=== PATIENT | male | born 1945 | race Caucasian/White ===

== ENCOUNTER 2016-08-18 16:50 | Observation (INO) ==
--- NOTE | 2016-08-18 16:56 | Emergency Department Note ---
Disposition Clinical Impression: Chest pain Qualifiers: Chest pain type: unspecified Qualified Code(s): R07.9 - Chest pain, unspecified Disposition: Admitted As Inpatient Condition: Fair Referrals: NO,PCP [Non-Partnered Physician] - Forms: ED Satisfaction Letter Time of Disposition: 19:55 General Adult HPI - General Chief complaint: ED Chest Pain Stated complaint: 'chest pain" Time Seen by Provider: 08/18/16 16:54 Source: patient, EMS Mode of arrival: EMS Limitations: altered mental status Nursing Notes Reviewed: Yes Vital Signs Reviewed: Yes - History of Present Illness HPI Narrative: 70-year-old apparently has had a fair amount to drink today who comes in complaining of chest pain that he describes as left-sided. He also has slurred speech in the face of a large amount of alcohol intake but family states he normally drinks a lot of alcohol the speech is of the slurred. Onset of slurred speech is unknown conversation with the patient and EMS who talked to family members. 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 Constitutional: Denies: fever, chills, weakness, weight change Eyes: Denies: eye pain, eye discharge, vision change ENT ED: Denies: ear pain, throat pain, dental pain, hearing loss, epistaxis, congestion, dysphagia Cardiovascular: Reports: chest pain. Denies: palpitations, dyspnea on exertion , edema, syncope Respiratory: Denies: cough, dyspnea, wheezes, hemoptysis, stridor Gastrointestinal: Denies: abdominal pain, nausea, vomiting, diarrhea, constipation, hematemesis, melena, hematochezia Genitourinary: Denies: urgency, dysuria, frequency, hematuria Musculoskeletal: Denies: back pain, neck pain, arthralgia, myalgia Integumentary: Denies: rash, abrasion, lesions Neurological: Denies: headache, weakness, numbness, paresthesias, confusion, abnormal gait, vertigo Psychiatric: Denies: anxiety, depression, suicidal thoughts, homicidal thoughts , auditory hallucinations, visual hallucinations Endocrine: Denies: fatigue Hematological/Lymphatic: Denies: easy bleeding, easy bruising Allergic/Immunologic: Denies: facial swelling, urticaria Physical Exam - General Limitations: no limitations General appearance: alert, in no apparent distress - Head Head exam: atraumatic, normocephalic, normal inspection - Eye Eye exam: Present: normal appearance, PERRL, EOMI - ENT ENT exam: normal exam, normal oropharynx, mucous membranes moist - Neck Neck exam: Present: normal inspection, full ROM, trachea midline - Chest Chest inspection: Present: normal inspection, symmetric chest wall rise - Respiratory Respiratory exam: Present: normal lung sounds bilaterally - Cardiovascular Cardiovascular exam: Present: regular rate, normal rhythm, normal heart sounds - Abdominal Exam Abdominal exam: Present: soft, Non-Tender. Absent: tenderness, distention, guarding, rebound, rigidity - Extremities Exam Extremities exam: Present: normal inspection, full ROM. Absent: tenderness, pedal edema - Expanded Lower Extremity Exam Neurovascular/Tendon exam: Absent: motor deficit, sensory deficit, tendon deficit Gait: observed and normal - Back Exam Back exam: Present: normal inspection, full ROM. Absent: tenderness - Neurological Exam Neurological exam: Present: alert, oriented X3 - Psychiatric Psychiatric exam: Present: normal affect, normal mood - Skin Skin exam: Present: warm, dry, intact, normal color Course - Reevaluation(s) Reevaluation #1: 70-year-old who comes in complaining of chest pain. Patient had a fair amount of alcohol today his alcohol level here is 178.. Patient is lucid and states it kind of feels like what he had prior to her previous NE. She will be admitted for further evaluation. Time: 19:53 - Consultations Consultation #1: Discussed with . Time: 19:54 Vital Signs Temperature 98.5 F 08/18/16 16:54 Pulse Rate 93 08/18/16 16:54 Respiratory Rate 18 08/18/16 16:54 Blood Pressure 115/84 08/18/16 16:54 O2 Sat by Pulse Oximetry 94 08/18/16 16:54 Temperature 98.5 F 08/18/16 16:54 Pulse Rate 83 08/18/16 18:15 Respiratory Rate 24 08/18/16 18:15 Blood Pressure 125/81 08/18/16 18:15 O2 Sat by Pulse Oximetry 92 08/18/16 18:15 Oxygen Delivery Oxygen Delivery Room Air Medical Decision Making - Lab Data Lab results reviewed: Yes I reviewed the patient's lab results. Result diagrams: 08/18/16 17:50 08/18/16 17:50 Lab Results 08/18/16 08/18/16 08/18/16 Range/Units 17:50 17:50 17:50 WBC 5.8 (4.3-11.1) K/mcL RBC 4.01 L (4.19-5.50) M/mcL Hgb 13.7 (12.9-16.9) g/dL Hct 40.2 (37.5-50.1) % MCV 100.2 H (83.0-100.0) fL MCH 34.2 H (28.0-33.3) pg MCHC 34.1 (31.6-35.5) g/dL RDW 13.3 (11.5-14.5) % Plt Count 155 (140-400) K/mcL MPV 10.2 (9.4-12.4) fL Immature Gran % 0.7 (0-4) % Seg Neutrophils % 45.3 % Lymphocytes % 39.7 % Monocytes % 8.3 % Eosinophils % 5.5 % Basophils % 0.5 % Neutrophils # 2.6 (1.6-8.9) K/mcL Lymphocytes # 2.3 (0.6-4.6) K/mcL Monocytes # 0.5 (0.0-1.3) K/mcL Eosinophils # 0.3 (0.0-0.6) K/mcL Basophils # 0.0 (0.0-0.2) K/mcL Immature Plt Fraction 5.0 (1.1-6.1) % PT 11.5 (9.4-12.1) Seconds INR 1.1 APTT 26.3 (26.0-36.0) Seconds Sodium 142 (136-145) mEq/L Potassium 3.9 (3.5-4.5) mEq/L Chloride 106 (98-109) mEq/L Carbon Dioxide 24 (19-29) mEq/L BUN 11 (8-26) mg/dL Creatinine 1.12 (0.72-1.25) mg/dL Est GFR ( Amer) > 60 (> 60) Est GFR (Non-Af Amer) > 60 (> 60) BUN/Creatinine Ratio 10 (6-26) Glucose 98 (70-99) mg/dL Calculated Osmolality 293 (280-300) Calcium 9.1 (8.6-10.8) mg/dL Total Bilirubin 0.4 (0.2-1.2) mg/dL Direct Bilirubin 0.1 (0.0-0.5) mg/dL Indirect Bilirubin 0.3 (0.0-1.2) mg/dL AST 17 (5-34) Units/L ALT 14 (0-55) Units/L Alkaline Phosphatase 57 (38-126) Units/L Troponin I (0-0.03) ng/mL Serum Total Protein 6.8 (6.0-8.3) g/dL Albumin 3.7 (3.5-5.0) g/dL Globulin 3.1 (2.4-3.5) g/dL Albumin/Globulin Ratio 1.2 (1.1-2.2) Amylase 53 (25-125) Units/L Lipase 38 (8-78) Units/L Ethyl Alcohol 178 H (0-10) mg/dL 08/18/16 Range/Units 17:50 WBC (4.3-11.1) K/mcL RBC (4.19-5.50) M/mcL Hgb (12.9-16.9) g/dL Hct (37.5-50.1) % MCV (83.0-100.0) fL MCH (28.0-33.3) pg MCHC (31.6-35.5) g/dL RDW (11.5-14.5) % Plt Count (140-400) K/mcL MPV (9.4-12.4) fL Immature Gran % (0-4) % Seg Neutrophils % % Lymphocytes % % Monocytes % % Eosinophils % % Basophils % % Neutrophils # (1.6-8.9) K/mcL Lymphocytes # (0.6-4.6) K/mcL Monocytes # (0.0-1.3) K/mcL Eosinophils # (0.0-0.6) K/mcL Basophils # (0.0-0.2) K/mcL Immature Plt Fraction (1.1-6.1) % PT (9.4-12.1) Seconds INR APTT (26.0-36.0) Seconds Sodium (136-145) mEq/L Potassium (3.5-4.5) mEq/L Chloride (98-109) mEq/L Carbon Dioxide (19-29) mEq/L BUN (8-26) mg/dL Creatinine (0.72-1.25) mg/dL Est GFR ( Amer) (> 60) Est GFR (Non-Af Amer) (> 60) BUN/Creatinine Ratio (6-26) Glucose (70-99) mg/dL Calculated Osmolality (280-300) Calcium (8.6-10.8) mg/dL Total Bilirubin (0.2-1.2) mg/dL Direct Bilirubin (0.0-0.5) mg/dL Indirect Bilirubin (0.0-1.2) mg/dL AST (5-34) Units/L ALT (0-55) Units/L Alkaline Phosphatase (38-126) Units/L Troponin I 0.02 (0-0.03) ng/mL Serum Total Protein (6.0-8.3) g/dL Albumin (3.5-5.0) g/dL Globulin (2.4-3.5) g/dL Albumin/Globulin Ratio (1.1-2.2) Amylase (25-125) Units/L Lipase (8-78) Units/L Ethyl Alcohol (0-10) mg/dL - Radiology Data Radiology results reviewed: Yes I reviewed the patient's radiology results. Chest X-Ray 08/18/16 16:52 IMPRESSION: No evidence of acute cardiopulmonary disease. Sequela of granulomatous disease. D/ / Bam Christensen MD / Bam Christensen MD Interpreting Provider: Bam Christensen MD Head CT 08/18/16 16:53 IMPRESSION: No acute intracranial abnormality. If acute cerebral infarct is a clinical concern, an MRI is a more sensitive study. D/ / Karen Omalley Cha, MD / Karen Omalley Cha, MD Interpreting Provider: Karen Omalley Cha, MD Hip X-Ray 08/18/16 16:57 IMPRESSION: No evidence of dislocation or gross fracture. D/ / Bam Christensen MD / Bam Christensen MD Interpreting Provider: Bam Christensen MD - EKG Data EKG #1 EKG attestation: Yes I reviewed and interpreted this EKG. EKG shows normal: sinus rhythm Rate: tachycardia Rhythm: NSR Interpretation: no acute changes
[2016-08-18 17:59] LABS: Basophils % 0.5 %; Eosinophils # 0.3 K/mcL (0.0-0.6); Eosinophils % 5.5 %; Hematocrit 40.2 % (37.5-50.1); Hemoglobin 13.7 g/dL (12.9-16.9); Immature Granulocytes % 0.7 % (0-4); Lymphocytes # 2.3 K/mcL (0.6-4.6); Lymphocytes % 39.7 %; Mean Corpuscular HGB Conc 34.1 g/dL (31.6-35.5); Mean Corpuscular Hemoglobin 34.2 pg (28.0-33.3); Mean Corpuscular Volume 100.2 fL (83.0-100.0); Mean Platelet Volume 10.2 fL (9.4-12.4); Monocytes # 0.5 K/mcL (0.0-1.3); Monocytes % 8.3 %; Neutrophils # 2.6 K/mcL (1.6-8.9); Platelet Count 155 K/mcL (140-400); Red Blood Count 4.01 M/mcL (4.19-5.50); Red Cell Distribution Width 13.3 % (11.5-14.5); Segmented Neutrophils % 45.3 %
[2016-08-18 18:06] LABS: INR 1.1; Prothrombin Time 11.5 Seconds (9.4-12.1)
[2016-08-18 18:09] LABS: Activated Partial Thrombo Time 26.3 Seconds (26.0-36.0)
[2016-08-18 19:26] LABS: Alanine Aminotransferase 14 Units/L (0-55); Albumin 3.7 g/dL (3.5-5.0); Albumin/Globulin Ratio 1.2 (1.1-2.2); Alkaline Phosphatase 57 Units/L (38-126); Amylase 53 Units/L (25-125); Aspartate Amino Transferase 17 Units/L (5-34); BUN/Creatinine Ratio 10 (6-26); Bilirubin,Direct 0.1 mg/dL (0.0-0.5); Bilirubin,Indirect 0.3 mg/dL (0.0-1.2); Bilirubin,Total 0.4 mg/dL (0.2-1.2); Blood Urea Nitrogen 11 mg/dL (8-26); Calcium 9.1 mg/dL (8.6-10.8); Carbon Dioxide 24 mEq/L (19-29); Chloride 106 mEq/L (98-109); Globulin 3.1 g/dL (2.4-3.5); Glucose 98 mg/dL (70-99); Lipase 38 Units/L (8-78); Osmolality,Calculated 293 (280-300); Potassium 3.9 mEq/L (3.5-4.5); Sodium 142 mEq/L (136-145); Total Protein 6.8 g/dL (6.0-8.3); eGFR For African Americans > 60 (> 60); eGFR For Non-African Americans > 60 (> 60)
[2016-08-18 19:28] LABS: Ethanol 178 mg/dL (0-10)
[2016-08-18] MEDS ORDERED: *HR* HYDROcodone/Acet 10/325 mg TABLET PO ONE (19:44)
[2016-08-18] MEDS ORDERED: 0.9 % Sodium Chloride 1,000 ML IVC ONE (19:44)
[2016-08-18] MEDS ORDERED: Naloxone 0.4 MG/ML INJ IVP PRN (22:17)
[2016-08-18] MEDS ORDERED: Acetaminophen 325 MG TABLET PO PRN (22:17)
[2016-08-18] MEDS ORDERED: *HR* HYDROcodone/Acet 10/325 mg TABLET PO PRN (22:20)
[2016-08-18] MEDS ORDERED: *HR* LORazepam 2 MG/ML VIAL IVP PRN ×3 (22:25)
[2016-08-18] MEDS ORDERED: *HR* Rivaroxaban 15 MG TABLET PO SCH (22:36)
--- NOTE | 2016-08-19 00:50 | Internal Med History&Physical ---
Date of Encounter: 08/18/16 Time of Encounter: 21:00 Assessment and Plan (1) Chest pain Current visit: Yes Status: Acute Etiology is undetermined. EKG and chest x-ray unremarkable. Patient has a history of CAD S/P stent, to rule out ACS - We will keep patient on continuous cardiac monitoring - Patient is pain-free now. - Check 3 sets of troponin. - Nuclear stress test in a.m., if troponin negative and patient is pain-free Qualifiers: Chest pain type: precordial pain Qualified Code(s): R07.2 - Precordial pain (2) DVT prophylaxis Current visit: Yes Status: Acute Patient is on xarelto. (3) Alcoholism Current visit: Yes Status: Acute Will place patient on CIWA protocol to prevent withdrawal. Add vitamin B1 and folate acid. Repeat alcohol level in a.m. (4) Chronic anticoagulation Current visit: Yes Status: Acute Patient is on xarelto at home, he said his cardiology told him his heart rate is sometimes fast sometimes slow. PAF?. Patient has sinus rhythm now. Will continue home medication (5) CAD (coronary artery disease) Current visit: Yes Status: Acute Patient is on xarelto, RENNY inhibitor, and statin. Nitroglycerin sublingual when necessary added. Qualifiers: Coronary Disease-Associated Artery/Lesion type: [place] artery [place] vs. transplanted heart: [place] heart Associated angina: with unstable angina Qualified Code(s): I25.110 - Atherosclerotic heart disease of [place] coronary artery with unstable angina pectoris (6) Hypertension Current visit: Yes Status: Acute Continue home medications Qualifiers: Hypertension type: essential hypertension Qualified Code(s): I10 - Essential (primary) hypertension (7) Tobacco abuse Current visit: Yes Status: Acute Patient smokes 1 pack a day. Smoking cessation education done. Place patient on nicotine patch. Internal Medicine - H&P: HPI Chief complaint: Chest pain Admitted From: Home Plans for Post Hospital Care: Home History of present illness: Mr. Gonzalez is a 70 year old male with history of CAD S/P stent about 4 years ago present to ER for chest pain. Patient said that he has chest pain on and off for about one year. Today he has chest pain again, located on left chest, sharp, radiated to right sided back, with shortness of breath, with nausea but no vomiting. Patient also has diaphoresis. The pain lasted 1-2 minutes and disappeared by itself. Patient also has a history of alcoholism, he drinks beer about 3 days a week and every time four beers a day. In ER his alcohol level is high. Patient also on xarelto 15mg po daily at home, he said his a cardiology give him because his heart rate sometimes fast sometimes slow. I discussed the CODE STATUS with patient. He is a full code. Past Med Surg Social Fam HX - Past Medical History Medical history: cirrhosis, COPD, CVA, hypertension, renal disease Psychiatric history: no psych history - Past Surgical History Surgical History: angioplasty/stent - Social History Smoking Status: Current every day smoker Packs per day: 1 Smokeless Tobacco Status: Yes Alcohol use: heavy, recent Drug use: marijuana Internal Medicine - H&P: Meds Gabapentin [Neurontin] 600 mg PO TID 08/18/16 [History] HYDROcodone/Acet 10/325 mg [[place] 10-325 mg] 1 tab PO Q6H PRN 08/18/16 [History] Lisinopril [Zestril] 40 mg PO DAILY 08/18/16 [History] Simvastatin [Zocor] 10 mg PO 08/18/16 [History] Xarelto 08/18/16 [History] Allergies No Known Allergies Allergy (Verified 08/18/16 16:53) All Systems PM: A 10-system review of systems was performed and is negative for pertinent findings except as documented above in the HPI. - Constitutional Vitals: Temp Pulse Resp BP Pulse Ox 97.8 F 88 20 150/75 95 08/18/16 23:19 08/18/16 23:19 08/18/16 23:19 08/18/16 23:19 08/18/16 23:19 General appearance: Present: A&O X 3, no acute distress, answers questions appropriately - Head Head exam: Present: atraumatic, normocephalic - Eye Eye exam: Present: PERRL, conjuntiva pink, sclera anicteric Pupils: Present: PERRL - Neck Neck exam general surgery: Present: supple, trachea midline. Absent: lymphadenopathy - Respiratory Respiratory exam: Present: CTAB. Absent: accessory muscle use, rales, rhonchi, wheezes - Cardiovascular Cardiovascular exam: Present: RRR, +S1, +S2. Absent: diastolic murmur, gallop, rubs, systolic murmur - GI/Abdominal GI/Abdominal exam: Present: normal bowel sounds, soft, no peritoneal signs. Absent: distended, tenderness - Extremities Exam Extremities exam: Present: warm, radial pulses palpable and symetrical. Absent : calf tenderness, cyanotic, pedal edema - Neurological Exam Neurological exam: Present: CN II-XII intact, oriented X3, no focal deficits. Absent: pronater drift, facial droop, speech deficit - Skin Skin exam: Present: dry, intact Internal Med - H&P Results - Labs CBC & Chem 7: 08/18/16 17:50 08/18/16 17:50 Labs: Cardiac Enzymes 08/18/16 Range/Units 22:45 Troponin I 0.00 (0-0.03) ng/mL - EKG Data -: EKG Interpreted by Myself EKG shows normal: sinus rhythm Rate: normal
[2016-08-19] MEDS ORDERED: Nitroglycerin 0.4 MG TAB.SUBL SL PRN (00:54)
[2016-08-19 04:51] LABS: Basophils # 0.1 K/mcL (0.0-0.2); Basophils % 0.7 %; Eosinophils # 0.4 K/mcL (0.0-0.6); Eosinophils % 6.1 %; Hematocrit 39.6 % (37.5-50.1); Hemoglobin 13.1 g/dL (12.9-16.9); Immature Granulocytes % 0.6 % (0-4); Lymphocytes # 2.2 K/mcL (0.6-4.6); Lymphocytes % 32.8 %; Mean Corpuscular HGB Conc 33.1 g/dL (31.6-35.5); Mean Corpuscular Hemoglobin 33.6 pg (28.0-33.3); Mean Corpuscular Volume 101.5 fL (83.0-100.0); Mean Platelet Volume 10.7 fL (9.4-12.4); Monocytes # 0.7 K/mcL (0.0-1.3); Monocytes % 9.6 %; Neutrophils # 3.4 K/mcL (1.6-8.9); Platelet Count 133 K/mcL (140-400); Red Cell Distribution Width 13.5 % (11.5-14.5); Segmented Neutrophils % 50.2 %
[2016-08-19 05:04] LABS: BUN/Creatinine Ratio 12 (6-26); Blood Urea Nitrogen 13 mg/dL (8-26); Calcium 8.5 mg/dL (8.6-10.8); Carbon Dioxide 27 mEq/L (19-29); Chloride 107 mEq/L (98-109); Glucose 95 mg/dL (70-99); Osmolality,Calculated 292 (280-300); Potassium 3.9 mEq/L (3.5-4.5); Sodium 141 mEq/L (136-145); eGFR For African Americans > 60 (> 60); eGFR For Non-African Americans > 60 (> 60)
[2016-08-19] MEDS ORDERED: Regadenoson 0.4 MG/5 ML SYRINGE IVP ONE (07:30)
[2016-08-19] MEDS ORDERED: Thiamine (B-1) 100 MG TABLET PO SCH (09:00)
[2016-08-19] MEDS ORDERED: Gabapentin 300 MG CAPSULE PO SCH (09:00)
[2016-08-19] MEDS ORDERED: Lisinopril 20 MG TABLET PO SCH (09:00)
[2016-08-19] MEDS ORDERED: Folic Acid 1 MG TABLET PO SCH (09:00)
[2016-08-19] MEDS ORDERED: Nicotine 21 MG PATCH.TD24 TD SCH (09:00)
[2016-08-19 10:38] VITALS: BP 147/76
--- NOTE | 2016-08-19 10:42 | Nuclear Medicine Stress Report ---
Regadenoson Nuclear Stress Name: Chandrakant Gonzalez Date of Study: 08/19/2016 Date: 1945 Ht: 76.0 in Medical Record#: [id number] Age: 70 Wt: 207.0 lb Gender: Male Order #: [id number] Location: [facility] Room: [facility] Supervising Provider: Matthew Dumont CNP Reading Physician: Dilshad Stoll DO, FAC, [facility] Ordering Physician: Yesenia Coburn CNP Primary Care Physician: Deejay Haney DO Stress Technologist: Pia Rob, ENGLISH AS A SECOND LANGUAGE TEACHER,CPFT Ladle Watcher: Wale Szymanski Indications: Chest Pain, Coronary Artery Disease Impression: Pharmacologic stress ECG is negative for ischemia at level of heart rate achieved. Gated EF = 73%. Perfusion imaging was negative for ischemia or infarct. History: Hypertension Hypercholesteremia History of Smoking Prior PCI History of Coronary Artery Bypass Surgery Stress Test Summary: Stress Test Type: Pharmacologic Regadenoson 0.4mg/5ml given IV Baseline Information: Initial Heart Rate: 80 Blood Pressure: 162/94 Stress Information: Test Terminated Due to (primary): As per protocol Maximum Blood Pressure: 148/82 Maximum Heart Rate: 108 Percent Maximum Heart Rate Achieved: 72 Double Product: 92186 METS Reached: 1 Symptoms: Shortness of breath Nuclear Summary: SPECT myocardial perfusion imaging using Tc99m Sestamibi given intravenously was performed at rest and following cardiac stress testing. The resting images were obtained following initial dose of 11.4 mCi. Following stress an additional dose of 35.2 mCi was given at peak exercise or 30 seconds post regadenoson infusion. Medication Given: Time Medication Dose Units Route Findings: Stress Note * Resting ECG demonstrated normal sinus rhythm. * No baseline arrhythmias were noted. * Exercise ECG is negative for ischemia. * Pharmacologic stress ECG is negative for ischemia at level of heart rate achieved. * No arrhythmias were noted during stress. * Patient had no chest pain during stress. Hemodynamic responses * Normal hemodynamic responses to pharmacologic stress. Study Quality * Study quality is average. Gated EF % * Gated EF = 73%. Left Ventricle * The left ventricle is not dilated. * LVEDV = 95 mL. NORMALS * Normal wall motion. Inferior Perfusion Rest * The mid to apical inferior segment shows a mid to moderate reduction in perfusion. Compared to stress, perfusion appears worse on rest imaging, which is c/w artifact. Inferior Perfusion Stress * The mid to apical inferior segment shows a mild reduction in perfusion. TID * No evidence of transient ischemic dilatation. TID ratio * TID ratio = 1.12. Lung Uptake * There is no evidence of increase lung uptake. Updated by Dilshad Stoll DO, FACJeff, SHAWNA, DAO on 08/19/2016 10:38:07 AM electronically signed on 08/19/2016 10:38:28 AM with status of Final
--- NOTE | 2016-08-19 12:52 | Discharge Summary ---
Date of Encounter: 08/19/16 Time of Encounter: 11:45 - Discharge Diagnosis (1) Chest pain Priority: Primary Status: Resolved Comments: Patient denied chest pain or shortness of breath on day of discharge. Chest x- ray negative. Troponins negative. Stress test negative. ACS ruled out. (2) DVT prophylaxis Priority: Primary Status: Acute Comments: on Xarelto (3) Alcoholism Priority: Secondary Status: Chronic Comments: Signs of withdrawal during this admission. Patient declined counseling or resources. (4) Chronic anticoagulation Priority: Secondary Status: Chronic (5) CAD (coronary artery disease) Priority: Secondary Status: Chronic Qualifiers: Coronary Disease-Associated Artery/Lesion type: [place] artery [place] vs. transplanted heart: [place] heart Associated angina: with unstable angina Qualified Code(s): I25.110 - Atherosclerotic heart disease of [place] coronary artery with unstable angina pectoris (6) Hypertension Priority: Secondary Status: Chronic Comments: Borderline hypertensive at times however no adjustments were indicated to the patient's medications. Continue lisinopril 40 mg daily. Recommend check blood pressure daily and follow up outpatient with primary care provider. Qualifiers: Hypertension type: essential hypertension Qualified Code(s): I10 - Essential (primary) hypertension (7) Tobacco abuse Priority: Secondary Status: Chronic Comments: Declined counseling - Discharge Medications Home Medications: Gabapentin [Neurontin] 600 mg PO TID 08/18/16 [History] HYDROcodone/Acet 10/325 mg [[place] 10-325 mg] 1 tab PO Q6H PRN 08/18/16 [History] Lisinopril [Zestril] 40 mg PO DAILY 08/18/16 [History] Simvastatin [Zocor] 10 mg PO 08/18/16 [History] Xarelto 08/18/16 [History] Allergies/Adverse Reactions: Allergies No Known Allergies Allergy (Verified 08/18/16 16:53) Procedures/tests Complete & Pending: Procedures Performed prior 72 hours Category Date Time Status NM naveed perf SPECT multi [NM] Routine Exams 08/18/16 22:22 Taken SP pharm nuclear stress Routine Y 08/18/16 22:21 Completed Date of admission: 08/18/16 20:05 Primary care physician: Batsheva Nova Consults: 08/18/16 22:25 Consult to Sheet Metal Work Furnace Installer [CONS] Routine Reason for SW Consult: Alcoholism Discharging clinician: Yesenia Coburn Anticipated date of discharge: 08/19/16 - Patient Status Disposition: Home, Self-Care Condition: Fair Functional capacity at discharge: independent ambulation Overall status at discharge: patient is back to baseline - Discharge Instructions Follow Up With: Deejay Haney DO [Primary Care Provider] - Additional Instructions: Follow-up with primary care provider within one to 2 weeks - Diet and Activity Activity: increase activity as tolerated Diet: low fat, low cholesterol, low salt diet Hospital course: Mr. Gonzalez is a 70 year old male with past medical history of CAD status post stent, cirrhosis, prior CVA, hypertension, heavy alcohol use, marijuana abuse, tobacco abuse. Patient presented to the emergency room chief complaint chest pain on and off for the last year. He states on the day of presentation, his chest pain was located on the left side of his chest, was sharp, and radiated to the right side of his back and was associated with shortness of breath and nausea but no vomiting. Patient also endorsed diaphoresis. Patient stating the pain lasted approximately 1-2 minutes and disappeared by itself. Elevated alcohol levels noted in the emergency department. Workup otherwise unremarkable. Chest x-ray negative for acute processes. Head CT negative for acute processes. Hip x-ray negative. Patient was admitted to the hospitalist service for further evaluation and management. Patient denied chest pain or shortness of breath throughout this admission. Troponins negative 3. Nuclear stress test negative for ischemia or infarct and revealed an ejection fraction of 73%. ACS ruled out. He was discharged home in stable condition with close outpatient follow-up recommended. ITS Impressions Chest X-Ray 08/18/16 16:52 IMPRESSION: No evidence of acute cardiopulmonary disease. Sequela of granulomatous disease. D/ / Bam Christensen MD / Bam Christensen MD Interpreting Provider: Bam Christensen MD Head CT 08/18/16 16:53 IMPRESSION: No acute intracranial abnormality. If acute cerebral infarct is a clinical concern, an MRI is a more sensitive study. D/ / Karen Omalley Cha, MD / Karen Omalley Cha, MD Interpreting Provider: Karen Omalley Cha, MD Hip X-Ray 08/18/16 16:57 IMPRESSION: No evidence of dislocation or gross fracture. D/ / Bam Christensen MD / Bam Christensen MD Interpreting Provider: Bam Christensen MD Regadenosen nuclear stress impression: Pharmacologic stress ECG is negative for ischemia at level of heart rate achieved. Gated ejection fraction equals 73%. Perfusion imaging was negative for ischemia or infarct. - Time Spent with Patient Total time spent providing and/or coordinating discharge services: - Constitutional Vitals: Temp Pulse Resp BP Pulse Ox 97.9 F 86 18 147/76 94 08/19/16 10:38 08/19/16 10:38 08/19/16 10:38 08/19/16 10:38 08/19/16 10:38 General appearance: Present: A&O X 3, pleasant, no acute distress, answers questions appropriately - Head Head exam: Present: atraumatic, normocephalic - Eye Eye exam: Present: PERRL, conjuntiva pink, sclera anicteric Pupils: Present: PERRL - Neck Neck exam general surgery: Present: supple, trachea midline. Absent: lymphadenopathy - Respiratory Respiratory exam: Present: decreased breath sounds. Absent: accessory muscle use, rales, respiratory distress, rhonchi, wheezes - Cardiovascular Cardiovascular exam: Present: RRR, +S1, +S2. Absent: diastolic murmur, gallop, rubs, systolic murmur - GI/Abdominal GI/Abdominal exam: Present: normal bowel sounds, soft, no peritoneal signs. Absent: distended, tenderness - Extremities Exam Extremities exam: Present: warm, radial pulses palpable and symetrical. Absent : calf tenderness, cyanotic, pedal edema - Neurological Exam Neurological exam: Present: alert, CN II-XII intact, normal gait, oriented X3, no focal deficits, strengths equal and symetr throughout. Absent: pronater drift, facial droop, speech deficit - Skin Skin exam: Present: dry, intact, normal color, warm
--- NOTE | 2016-08-20 16:46 | Electrocardiograph Report ---
[place] [address] Test Date: 2016-08-18 Pat Name: Chandrakant Gonzalez Department: 104 Room: 3B Gender: M Forensic Examiner: LOIS : 1945 Requested By: Arjun Lu Order Number: [id number] Reading MD: Mary Novak Measurements Intervals [place] Rate: 100 P: 157 MN: 187 QRS: 144 QRSD: 104 T: 194 QT: 336 QTc: 393 Interpretive Statements SINUS TACHYCARDIA WITH OCCASIONAL SUPRAVENTRICULAR PREMATURE COMPLEXES ARTIFACT LIMITS INTERPRETATION Electronically Signed On 08-20-2016 16:44:20 EDT by Mary Novak
== END 2016-08-19 13:26 | disposition home or self-care (01) ==
LOC: EMEROO 16:50 → 3BNU 16:50
PROVIDERS: ADMIT Internal Medicine; ATTEND Nurse Practitioner Family

== ENCOUNTER 2017-03-13 23:06 | Observation (INO) ==
--- NOTE | 2017-03-13 23:23 | Emergency Department Note ---
Disposition Clinical Impression: Chest pain, rule out acute myocardial infarction, H/O: CVA (cerebrovascular accident) Disposition: Admitted As Inpatient Condition: Fair Referrals: NONE,PCP [Primary Care Provider] - Forms: ED Satisfaction Letter Time of Disposition: 03:01 General Adult HPI - General Chief complaint: ED Chest Pain Stated complaint: CP/RYLEE/ETOH Time Seen by Provider: 03/13/17 23:09 Source: patient, EMS Limitations: no limitations Nursing Notes Reviewed: Yes Vital Signs Reviewed: Yes - History of Present Illness HPI Narrative: 71-year-old male is brought by EMS for evaluation of generalized weakness, chest pain, difficulty breathing. EMS report that family had called for EMS services for generalized weakness. EMS reported that the patient had been found lying on the couch upon their arrival. EMS called and report stating that the patient had noticeable left-sided deficits however this is not found to be the case upon his arrival. The patient is a poor historian, as he does admit to ingesting a half a fifth of whiskey just prior to arrival. He does complain of ongoing chest pain for the past 3 days that is associated with some difficulty in breathing however he is unable to describe the characteristics of this pain. Onset (ago): day(s) (3) Location: chest Pain Scale: 8 Improves with: nothing Worsens with: nothing Associated symptoms: Reports: weakness - Related Data Home Medications Medication Instructions Recorded Confirmed Gabapentin [Neurontin] 600 mg PO TID 08/18/16 08/18/16 HYDROcodone/Acet 10/325 mg [[place] 1 tab PO Q6H PRN 08/18/16 08/18/16 10-325 mg] Lisinopril [Zestril] 40 mg PO DAILY 08/18/16 08/18/16 Simvastatin [Zocor] 10 mg PO 08/18/16 Xarelto 08/18/16 Previous Rx's Medication Instructions Recorded Doxycycline 100 mg PO BID #20 capsule 01/03/17 Allergies Allergy/AdvReac Type Severity Reaction Status Date / Time No Known Allergies Allergy Verified 01/03/17 18:31 All systems ED: reviewed and negative except as stated. Constitutional: Denies: fever, chills, weakness, weight change Eyes: Denies: eye pain, eye discharge, vision change ENT ED: Denies: ear pain, throat pain, dental pain, hearing loss, epistaxis, congestion, dysphagia Cardiovascular: Reports: as per HPI, chest pain. Denies: palpitations, dyspnea on exertion, edema, syncope Respiratory: Reports: as per HPI, dyspnea. Denies: cough, wheezes, hemoptysis, stridor Gastrointestinal: Denies: abdominal pain, nausea, vomiting, diarrhea, constipation, hematemesis, melena, hematochezia Genitourinary: Denies: urgency, dysuria, frequency, hematuria Musculoskeletal: Denies: back pain, neck pain, arthralgia, myalgia Integumentary: Denies: rash, abrasion, lesions Neurological: Reports: as per HPI, weakness. Denies: headache, numbness, paresthesias, confusion, abnormal gait, vertigo Psychiatric: Denies: anxiety, depression, suicidal thoughts, homicidal thoughts , auditory hallucinations, visual hallucinations Endocrine: Denies: fatigue Hematological/Lymphatic: Denies: easy bleeding, easy bruising Allergic/Immunologic: Denies: facial swelling, urticaria Past Medical History - Past Medical History Attestation: Yes The following information was validated with the patient. Source: patient, nursing notes reviewed Medical history: Reports: cirrhosis, COPD, CVA, hypertension Surgical history: Reports: angioplasty/stent Psychiatric history: Reports: no psych history - Social History Smoking Status: Current every day smoker Smokeless Tobacco Status: Yes Alcohol use: Reports: heavy, recent Drug use: Reports: none Physical Exam - General Limitations: no limitations General appearance: alert, in no apparent distress - Head Head exam: atraumatic, normocephalic, normal inspection - Eye Eye exam: Present: normal appearance, PERRL, EOMI. Absent: nystagmus - Expanded Eye Exam Pupils: Bilateral: regular, round, reactive, size (3) - ENT ENT exam: mucous membranes moist - Neck Neck exam: Present: normal inspection, full ROM, trachea midline - Chest Chest inspection: Present: normal inspection, symmetric chest wall rise - Respiratory Respiratory exam: Present: wheezes (Expiratory wheezes noted bilaterally). Absent: respiratory distress, stridor, accessory muscle use, prolonged expiratory phase - Cardiovascular Cardiovascular exam: Present: regular rate, normal rhythm, normal heart sounds - Abdominal Exam Abdominal exam: Present: soft, Non-Tender, normal bowel sounds - Extremities Exam Extremities exam: Present: normal inspection, full ROM. Absent: pedal edema - Back Exam Back exam: Present: normal inspection, full ROM. 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 Velasquez was present in the room during my evaluation. Family members had called for EMS transport because of some apparent speech deficits. When asked, the patient stated that he "felt like he was having another stroke". Onset of symptoms is uncertain, as the patient only states that his chest pain and shortness of breath began 3 days ago. He cannot allude to when the appearance of this slurred speech began. Dr. Velasquez agrees that there are no appreciable focal neurological deficits. Given that the patient has slurred speech and is admittedly intoxicated, we will proceed with CT imaging of the head and neck, as we cannot ascertain if there were any injury or falls prior to his arrival here. 0347: Dr. Madden accepts to the hospitalist service. Vital Signs Temperature 94.5 F L 03/13/17 23:09 Pulse Rate 77 03/13/17 23:09 Respiratory Rate 20 03/13/17 23:09 Blood Pressure 147/82 03/13/17 23:09 O2 Sat by Pulse Oximetry 97 03/13/17 23:09 Temperature 94.5 F L 03/13/17 23:09 Pulse Rate 64 03/14/17 02:01 Respiratory Rate 16 03/14/17 03:29 Blood Pressure 110/60 03/14/17 03:29 O2 Sat by Pulse Oximetry 94 03/14/17 02:01 Oxygen Delivery Oxygen Delivery Room Air Medical Decision Making - Medical Records Medical records reviewed: Yes I reviewed the patient's medical records. - Lab Data Lab results reviewed: Yes I reviewed the patient's lab results. Lab results narrative: Laboratory Last Values WBC 5.0 K/mcL (4.3-11.1) 03/13/17 23:55 RBC 3.90 M/mcL (4.19-5.50) L 03/13/17 23:55 Hgb 13.8 g/dL (12.9-16.9) 03/13/17 23:55 Hct 40.9 % (37.5-50.1) 03/13/17 23:55 MCV 104.9 fL (83.0-100.0) H 03/13/17 23:55 MCH 35.4 pg (28.0-33.3) H 03/13/17 23:55 MCHC 33.7 g/dL (31.6-35.5) 03/13/17 23:55 RDW 13.3 % (11.5-14.5) 03/13/17 23:55 Plt Count 155 K/mcL (140-400) 03/13/17 23:55 MPV 10.0 fL (9.4-12.4) 03/13/17 23:55 Immature Gran % 0.4 % (0-4) 03/13/17 23:55 Seg Neutrophils % 35.4 % 03/13/17 23:55 Lymphocytes % 51.9 % 03/13/17 23:55 Monocytes % 7.1 % 03/13/17 23:55 Eosinophils % 4.8 % 03/13/17 23:55 Basophils % 0.4 % 03/13/17 23:55 Neutrophils # 1.8 K/mcL (1.6-8.9) 03/13/17 23:55 Lymphocytes # 2.6 K/mcL (0.6-4.6) 03/13/17 23:55 Monocytes # 0.4 K/mcL (0.0-1.3) 03/13/17 23:55 Eosinophils # 0.2 K/mcL (0.0-0.6) 03/13/17 23:55 Basophils # 0.0 K/mcL (0.0-0.2) 03/13/17 23:55 PT 11.7 Seconds (9.4-12.1) 03/13/17 23:55 INR 1.1 03/13/17 23:55 APTT 28.4 Seconds (26.0-36.0) 03/13/17 23:55 Sodium 143 mEq/L (136-145) 03/13/17 23:55 Potassium 3.6 mEq/L (3.5-5.1) 03/13/17 23:55 Chloride 108 mEq/L (98-107) H 03/13/17 23:55 Carbon Dioxide 28 mEq/L (23-29) 03/13/17 23:55 BUN 12 mg/dL (8-23) 03/13/17 23:55 Creatinine 1.03 mg/dL (0.70-1.30) 03/13/17 23:55 Est GFR ( Amer) > 60 (> 60) 03/13/17 23:55 Est GFR (Non-Af Amer) > 60 (> 60) 03/13/17 23:55 BUN/Creatinine Ratio 12 (6-26) 03/13/17 23:55 Glucose 108 mg/dL (70-105) H 03/13/17 23:55 POC Glucose 114 (58-89) H 03/13/17 23:19 Calculated Osmolality 296 (280-300) 03/13/17 23:55 Calcium 9.1 mg/dL (8.6-10.3) 03/13/17 23:55 Troponin I < 0.03 ng/mL (< 0.04) 03/13/17 23:55 B-Natriuretic Peptide 68 pg/mL (Less than 100) 03/13/17 23:55 Urine Color Yellow (Yellow) 03/14/17 00:10 Urine Clarity Clear (Clear) 03/14/17 00:10 Urine pH 6.5 pH Units (5.0-8.0) 03/14/17 00:10 Ur Specific [place] 1.012 (1.010-1.025) 03/14/17 00:10 Urine Protein Negative mg/dL (Neg-Trace) 03/14/17 00:10 Urine Glucose (UA) Normal mg/dL (Normal) 03/14/17 00:10 Urine Ketones Negative mg/dL (Negative) 03/14/17 00:10 Urine Blood Negative (Negative) 03/14/17 00:10 Urine Nitrite Negative (Negative) 03/14/17 00:10 Urine Bilirubin Negative (Negative) 03/14/17 00:10 Urine Urobilinogen Normal mg/dL (Normal) 03/14/17 00:10 Ur Leukocyte Esterase Negative (Negative) 03/14/17 00:10 Ur Culture Indicated? NO (NO) 03/14/17 00:10 Urine Opiates Screen Negative ng/mL (Wpmjev=904) 03/14/17 00:10 Ur Barbiturates Screen Negative ng/mL (Kzikpa=526) 03/14/17 00:10 Ur Phencyclidine Scrn Negative ng/mL (Cutoff=25) 03/14/17 00:10 Ur Amphetamines Screen Negative ng/mL (Eyqiaz=6171) 03/14/17 00:10 U Benzodiazepines Scrn Negative ng/mL (Hypahb=168) 03/14/17 00:10 Urine Cocaine Screen Negative ng/mL (Cutoff= 300) 03/14/17 00:10 U Marijuana (THC) Screen Negative ng/mL (Cutoff = 50) 03/14/17 00:10 Ethyl Alcohol 241 mg/dL (0-10) H 03/13/17 23:55 Result diagrams: 03/13/17 23:55 03/13/17 23:55 Lab Results 03/13/17 03/13/17 03/13/17 Range/Units 23:19 23:55 23:55 WBC (4.3-11.1) K/mcL RBC (4.19-5.50) M/mcL Hgb (12.9-16.9) g/dL Hct (37.5-50.1) % MCV (83.0-100.0) fL MCH (28.0-33.3) pg MCHC (31.6-35.5) g/dL RDW (11.5-14.5) % Plt Count (140-400) K/mcL MPV (9.4-12.4) fL Immature Gran % (0-4) % Seg Neutrophils % % Lymphocytes % % Monocytes % % Eosinophils % % Basophils % % Neutrophils # (1.6-8.9) K/mcL Lymphocytes # (0.6-4.6) K/mcL Monocytes # (0.0-1.3) K/mcL Eosinophils # (0.0-0.6) K/mcL Basophils # (0.0-0.2) K/mcL PT 11.7 (9.4-12.1) Seconds INR 1.1 APTT 28.4 (26.0-36.0) Seconds Sodium (136-145) mEq/L Potassium (3.5-5.1) mEq/L Chloride (98-107) mEq/L Carbon Dioxide (23-29) mEq/L BUN (8-23) mg/dL Creatinine (0.70-1.30) mg/dL Est GFR ( Amer) (> 60) Est GFR (Non-Af Amer) (> 60) BUN/Creatinine Ratio (6-26) Glucose (70-105) mg/dL POC Glucose 114 H (58-89) Calculated Osmolality (280-300) Calcium (8.6-10.3) mg/dL Troponin I (< 0.04) ng/mL B-Natriuretic Peptide 68 (Less than 100) pg/mL Urine Color (Yellow) Urine Clarity (Clear) Urine pH (5.0-8.0) pH Units Ur Specific [place] (1.010-1.025) Urine Protein (Neg-Trace) mg/dL Urine Glucose (UA) (Normal) mg/dL Urine Ketones (Negative) mg/dL Urine Blood (Negative) Urine Nitrite (Negative) Urine Bilirubin (Negative) Urine Urobilinogen (Normal) mg/dL Ur Leukocyte Esterase (Negative) Ur Culture Indicated? (NO) Urine Opiates Screen (Ktvomo=983) ng/mL Ur Barbiturates Screen (Dhbyrr=675) ng/mL Ur Phencyclidine Scrn (Cutoff=25) ng/mL Ur Amphetamines Screen (Lbyvkf=6766) ng/mL U Benzodiazepines Scrn (Rpkmoh=788) ng/mL Urine Cocaine Screen (Cutoff= 300) ng/mL U Marijuana (THC) Screen (Cutoff = 50) ng/mL Ethyl Alcohol (0-10) mg/dL 03/13/17 03/13/17 03/13/17 Range/Units 23:55 23:55 23:55 WBC 5.0 (4.3-11.1) K/mcL RBC 3.90 L (4.19-5.50) M/mcL Hgb 13.8 (12.9-16.9) g/dL Hct 40.9 (37.5-50.1) % MCV 104.9 H (83.0-100.0) fL MCH 35.4 H (28.0-33.3) pg MCHC 33.7 (31.6-35.5) g/dL RDW 13.3 (11.5-14.5) % Plt Count 155 (140-400) K/mcL MPV 10.0 (9.4-12.4) fL Immature Gran % 0.4 (0-4) % Seg Neutrophils % 35.4 % Lymphocytes % 51.9 % Monocytes % 7.1 % Eosinophils % 4.8 % Basophils % 0.4 % Neutrophils # 1.8 (1.6-8.9) K/mcL Lymphocytes # 2.6 (0.6-4.6) K/mcL Monocytes # 0.4 (0.0-1.3) K/mcL Eosinophils # 0.2 (0.0-0.6) K/mcL Basophils # 0.0 (0.0-0.2) K/mcL PT (9.4-12.1) Seconds INR APTT (26.0-36.0) Seconds Sodium 143 (136-145) mEq/L Potassium 3.6 (3.5-5.1) mEq/L Chloride 108 H (98-107) mEq/L Carbon Dioxide 28 (23-29) mEq/L BUN 12 (8-23) mg/dL Creatinine 1.03 (0.70-1.30) mg/dL Est GFR ( Amer) > 60 (> 60) Est GFR (Non-Af Amer) > 60 (> 60) BUN/Creatinine Ratio 12 (6-26) Glucose 108 H (70-105) mg/dL POC Glucose (58-89) Calculated Osmolality 296 (280-300) Calcium 9.1 (8.6-10.3) mg/dL Troponin I < 0.03 (< 0.04) ng/mL B-Natriuretic Peptide (Less than 100) pg/mL Urine Color (Yellow) Urine Clarity (Clear) Urine pH (5.0-8.0) pH Units Ur Specific [place] (1.010-1.025) Urine Protein (Neg-Trace) mg/dL Urine Glucose (UA) (Normal) mg/dL Urine Ketones (Negative) mg/dL Urine Blood (Negative) Urine Nitrite (Negative) Urine Bilirubin (Negative) Urine Urobilinogen (Normal) mg/dL Ur Leukocyte Esterase (Negative) Ur Culture Indicated? (NO) Urine Opiates Screen (Tzjmpt=364) ng/mL Ur Barbiturates Screen (Jwgiac=255) ng/mL Ur Phencyclidine Scrn (Cutoff=25) ng/mL Ur Amphetamines Screen (Gakjiw=5472) ng/mL U Benzodiazepines Scrn (Lhcwqj=759) ng/mL Urine Cocaine Screen (Cutoff= 300) ng/mL U Marijuana (THC) Screen (Cutoff = 50) ng/mL Ethyl Alcohol (0-10) mg/dL 03/13/17 03/14/17 03/14/17 Range/Units 23:55 00:10 00:10 WBC (4.3-11.1) K/mcL RBC (4.19-5.50) M/mcL Hgb (12.9-16.9) g/dL Hct (37.5-50.1) % MCV (83.0-100.0) fL MCH (28.0-33.3) pg MCHC (31.6-35.5) g/dL RDW (11.5-14.5) % Plt Count (140-400) K/mcL MPV (9.4-12.4) fL Immature Gran % (0-4) % Seg Neutrophils % % Lymphocytes % % Monocytes % % Eosinophils % % Basophils % % Neutrophils # (1.6-8.9) K/mcL Lymphocytes # (0.6-4.6) K/mcL Monocytes # (0.0-1.3) K/mcL Eosinophils # (0.0-0.6) K/mcL Basophils # (0.0-0.2) K/mcL PT (9.4-12.1) Seconds INR APTT (26.0-36.0) Seconds Sodium (136-145) mEq/L Potassium (3.5-5.1) mEq/L Chloride (98-107) mEq/L Carbon Dioxide (23-29) mEq/L BUN (8-23) mg/dL Creatinine (0.70-1.30) mg/dL Est GFR ( Amer) (> 60) Est GFR (Non-Af Amer) (> 60) BUN/Creatinine Ratio (6-26) Glucose (70-105) mg/dL POC Glucose (58-89) Calculated Osmolality (280-300) Calcium (8.6-10.3) mg/dL Troponin I (< 0.04) ng/mL B-Natriuretic Peptide (Less than 100) pg/mL Urine Color Yellow (Yellow) Urine Clarity Clear (Clear) Urine pH 6.5 (5.0-8.0) pH Units Ur Specific [place] 1.012 (1.010-1.025) Urine Protein Negative (Neg-Trace) mg/dL Urine Glucose (UA) Normal (Normal) mg/dL Urine Ketones Negative (Negative) mg/dL Urine Blood Negative (Negative) Urine Nitrite Negative (Negative) Urine Bilirubin Negative (Negative) Urine Urobilinogen Normal (Normal) mg/dL Ur Leukocyte Esterase Negative (Negative) Ur Culture Indicated? NO (NO) Urine Opiates Screen Negative (Pueceq=738) ng/mL Ur Barbiturates Screen Negative (Njdhkk=736) ng/mL Ur Phencyclidine Scrn Negative (Cutoff=25) ng/mL Ur Amphetamines Screen Negative (Tvafqd=0986) ng/mL U Benzodiazepines Scrn Negative (Jjytfg=584) ng/mL Urine Cocaine Screen Negative (Cutoff= 300) ng/mL U Marijuana (THC) Screen Negative (Cutoff = 50) ng/mL Ethyl Alcohol 241 H (0-10) mg/dL - Radiology Data Radiology results reviewed: Yes I reviewed the patient's radiology results. Chest X-Ray 03/13/17 23:18 IMPRESSION: Bibasilar airspace disease probably represents atelectasis. Pneumonia is considered less likely. D/ / Agusto Amanda MD / Agusto Amanda MD Interpreting Provider: Agusto Amanda MD Cervical Spine CT 03/14/17 00:00 IMPRESSION: 1. Motion degraded examination. 2. No evidence of acute crusted matter the cervical spine. D/ / Kulwant Bansal MD / Kulwant Bansal MD Interpreting Provider: Kulwant Bansal MD Head CT 03/14/17 00:00 IMPRESSION: Limited study with no definite acute intracranial abnormality. D/ / Agusto Amanda MD / Agusto Amanda MD Interpreting Provider: Agusto Amanda MD - EKG Data EKG #1 EKG attestation: Yes I reviewed and interpreted this EKG. EKG results narrative: EKG reviewed by Dr. Velasquez as well. EKG shows a sinus rhythm with nonspecific T wave abnormality at a rate of 76 bpm. [place] interval 172, QRS duration 98, QT/ QTc interval 383/413. No ectopy noted. No STEMI. Attestation Statement - Attestation Attestation: I, Yohannes Velasquez DO have provided Bzid-ll-[id number] time during the care of this patient. Detailed review the presentation, symptoms, medical history were discussed and reviewed with the mid-level provider Eleazar Byrnes PA-C/UNDERCUTTER OPERATOR. Medical intervention labs and imaging studies were reviewed in detail. See full documentation of physical exam and course of care in the mid-level provider's note. I agree with the determined course of care, medical intervention and disposition put forth by the mid-level provider. See below documentation for changes or alterations in documentation. 71-year-old male presents to the emergency room at the request of family evaluation of altered mentation strokelike symptoms at home. Patient is visibly and admittedly intoxicated with alcohol this point. He drinks several beers and half a bottle of whiskey. Patient on presentation there has no acute signs of focal neurologic deficit. He has no facial asymmetry. He does have slurring of speech was difficult to discern whether this is from alcohol chronic stroke or new strokelike symptoms. He has no acute signs of cerebellar dysfunction. He has symmetric upper and lower extremity strength and motor function. He has no acute traumatic injuries noted at this time. Lungs are clear heart is regular abdomen is soft nontender nondistended. Patient had a negative stroke evaluation here except for the slurred speech. CT imaging of the head and cervical spine to be completed along with screening laboratory workup. Vital signs are otherwise unremarkable presentation. Family will be brought in the room for their discussion evaluation with MRI. Clinically patient does not warrant an acute stroke evaluation secondary to the intoxication in no acute neurologic deficits. We will continue to monitor his treatment course is completed. See detailed documentation of the physical exam , medical intervention, medical decision-making and disposition of the mid- level provider's note. 0410 Patient has unremarkable workup here in the emergency room. He sleeping comfortably in bed this time. Because the patient's initial complaint of chest discomfort and neurologic deficits patient will be admitted for further evaluation. No other concerns or issues noted. Heart Score - Score History: Moderately Suspicious EKG: Non Specific repolarisation Disturbance Age: Greater than 65 Risk Factors: 1-2 risk factors Troponin: Less than normal limit HEART Score Total: 5
[2017-03-14 00:10] LABS: Basophils % 0.4 %; Eosinophils # 0.2 K/mcL (0.0-0.6); Eosinophils % 4.8 %; Hematocrit 40.9 % (37.5-50.1); Hemoglobin 13.8 g/dL (12.9-16.9); Immature Granulocytes % 0.4 % (0-4); Lymphocytes # 2.6 K/mcL (0.6-4.6); Lymphocytes % 51.9 %; Mean Corpuscular HGB Conc 33.7 g/dL (31.6-35.5); Mean Corpuscular Hemoglobin 35.4 pg (28.0-33.3); Mean Corpuscular Volume 104.9 fL (83.0-100.0); Monocytes # 0.4 K/mcL (0.0-1.3); Monocytes % 7.1 %; Neutrophils # 1.8 K/mcL (1.6-8.9); Platelet Count 155 K/mcL (140-400); Red Cell Distribution Width 13.3 % (11.5-14.5); Segmented Neutrophils % 35.4 %
[2017-03-14 00:17] LABS: INR 1.1; Prothrombin Time 11.7 Seconds (9.4-12.1)
[2017-03-14 00:19] LABS: Activated Partial Thrombo Time 28.4 Seconds (26.0-36.0)
[2017-03-14 00:20] LABS: Bilirubin,Urine Negative (Negative); Blood,Urine Negative (Negative); Clarity,Urine Clear (Clear); Color,Urine Yellow (Yellow); Glucose,Urine (UA) Normal (Normal); Ketones,Urine Negative (Negative); Leukocyte Esterase,Urine Negative (Negative); Nitrite,Urine Negative (Negative); PH,Urine 6.5 pH Units (5.0-8.0); Protein,Urine Negative (Neg-Trace); Specific Gravity,Urine 1.012 (1.010-1.025); Urobilinogen,Urine Normal (Normal)
[2017-03-14 00:27] LABS: BUN/Creatinine Ratio 12 (6-26); Blood Urea Nitrogen 12 mg/dL (8-23); Calcium 9.1 mg/dL (8.6-10.3); Carbon Dioxide 28 mEq/L (23-29); Chloride 108 mEq/L (98-107); Glucose 108 mg/dL (70-105); Osmolality,Calculated 296 (280-300); Potassium 3.6 mEq/L (3.5-5.1); Sodium 143 mEq/L (136-145); eGFR For African Americans > 60 (> 60); eGFR For Non-African Americans > 60 (> 60)
[2017-03-14 00:35] LABS: Amphetamine Screen,Urine Negative ng/mL (Cutoff=1000); Barbiturate Screen,Urine Negative ng/mL (Cutoff=200); Benzodiazepines Screen,Urine Negative ng/mL (Cutoff=200); Cannabinoid Screen,Urine Negative ng/mL (Cutoff = 50); Cocaine Screen,Urine Negative ng/mL (Cutoff= 300); Opiate Screen,Urine Negative ng/mL (Cutoff=300); Phencyclidine Screen,Urine Negative ng/mL (Cutoff=25)
[2017-03-14] MEDS ORDERED: Aspirin 81 MG TAB.CHEW PO ONE (02:47)
[2017-03-14] MEDS ORDERED: Ondansetron 4 MG/2 ML VIAL IVP PRN (06:07)
[2017-03-14] MEDS ORDERED: 0.9 % Sodium Chloride 1,000 ML IVC SCH (06:15)
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
[2017-03-14] MEDS ORDERED: Ipratropium/Albuterol Neb 3 ML IH PRN (06:36)
[2017-03-14] MEDS ORDERED: Aspirin Enteric Coated 81 MG Tablet PO SCH (09:00)
[2017-03-14] MEDS ORDERED: amLODIPine 5 MG TABLET PO SCH (11:15)
[2017-03-14] MEDS ORDERED: Lisinopril 20 MG TABLET PO SCH (11:15)
[2017-03-14 11:17] VITALS: BP 142/100
[2017-03-14] MEDS: Gabapentin 300 MG CAPSULE PO SCH ×2 (13:58→18:28)
[2017-03-14] MEDS ORDERED: *HR* Heparin 5,000 UNIT/ML VIAL SQ SCH (14:00)
[2017-03-14] MEDS: *HR* OxyCODONE/APAP 5/325 TABLET PO PRN ×2 (14:07→18:31)
--- NOTE | 2017-03-14 14:35 | Discharge Summary ---
Date of Encounter: 03/14/17 Time of Encounter: 14:33 - Discharge Diagnosis (1) Chest pain Priority: Primary Status: Resolved Qualifiers: Chest pain type: precordial pain Qualified Code(s): R07.2 - Precordial pain (2) Alcohol intoxication Priority: Secondary Status: Acute Qualifiers: Complication of substance-induced condition: uncomplicated Qualified Code(s ): F10.920 - Alcohol use, unspecified with intoxication, uncomplicated (3) Alcoholism Priority: Secondary Status: Chronic (4) CAD (coronary artery disease) Priority: Secondary Status: Chronic Qualifiers: Coronary Disease-Associated Artery/Lesion type: [place] artery [place] vs. transplanted heart: [place] heart Associated angina: without angina Qualified Code(s): I25.10 - Atherosclerotic heart disease of [place] coronary artery without angina pectoris (5) Hypertension Priority: Secondary Status: Chronic Qualifiers: Hypertension type: essential hypertension Qualified Code(s): I10 - Essential (primary) hypertension (6) H/O: CVA (cerebrovascular accident) Priority: Secondary Status: Inactive (7) COPD (chronic obstructive pulmonary disease) Priority: Secondary Status: Chronic Qualifiers: COPD type: unspecified COPD Qualified Code(s): J44.9 - Chronic obstructive pulmonary disease, unspecified - Discharge Medications Prescriptions: Simvastatin [Zocor] 10 mg PO HS #30 tablet Home Medications: Gabapentin [Neurontin] 600 mg PO QID 08/18/16 [History] Lisinopril [Zestril] 40 mg PO DAILY 08/18/16 [History] Rivaroxaban [Xarelto] 15 mg PO DAILY #0 08/18/16 [History] Aspirin Enteric Coated [Aspirin EC] 81 mg PO DAILY 03/14/17 [History] Buspirone HCl [Buspar] 15 mg PO TID 03/14/17 [History] Finasteride [Proscar] 5 mg PO DAILY 03/14/17 [History] Metoprolol [Lopressor] 12.5 mg PO QAM 03/14/17 [History] Metoprolol [Lopressor] 25 mg PO HS 03/14/17 [History] Omeprazole [PriLOSEC] 20 mg PO DAILY 03/14/17 [History] OxyCODONE/APAP 5/325 [Percocet 5/325 MG] 1 tab PO TID PRN 12/28/17 [History] Simvastatin [Zocor] 10 mg PO HS #30 tablet 03/14/17 [Rx] Tamsulosin [Flomax] 0.4 mg PO DAILY 03/14/17 [History] amLODIPine [Norvasc] 5 mg PO DAILY 03/14/17 [History] Allergies/Adverse Reactions: 3 Allergy/AdvReac Type Severity Reaction Status Date / Time No Known Allergies Allergy Verified 01/03/17 18:31 Date of admission: 03/14/17 04:52 Primary care physician: PCP NONE Consults: 03/14/17 06:12 Consult to Coding Coordinator [CONS] Routine Reason for SW Consult: Alcohol abuse Discharging clinician: Alberto Torres Anticipated date of discharge: 03/14/17 - Patient Status Disposition: Home, Self-Care Condition: Good Functional capacity at discharge: independent ambulation Overall status at discharge: patient is progressing back to baseline - Discharge Instructions Instructions: Simvastatin (By mouth), Chest Pain (DC), Chronic Obstructive Pulmonary Disease (DC), Alcohol Intoxication (DC), Alcohol Intoxication (GEN), Chronic Hypertension (DC), Cigarette Smoking and Your Health, Education Manager ( GEN) Follow Up With: Santa Latham [Mechanical Engineering Advisor] - Star Abbott CNP [Advanced Practice Nurse] - 03/22/17 7:15 am NONE,PCP [Primary Care Provider] - Additional Instructions: We electronically sent your prescription to [facility] - Diet and Activity Activity: resume usual activities as tolerated Diet: low fat, low cholesterol, low salt diet, other Hospital course: Mr. Gonzalez is a 71 year old male patient with history of COPD, CAD, Cirrhosis, Hypertension, CVA was hospitalized here for observation after resenting to the ER with complaints of slurred speech and shortness of breath. He also complained of some chest pain. He was hospitalized for monitoring. His troponins were checked and they were found to be negative. Patient already underwent a stress test earlier this year which was negative for any ischemia or infarct. He does have a history of A. fib and is on long-term anticoagulation. This morning is feeling better overall but only complains of a hangover. He did not receive IV fluids and is more awake and alert. He does not have anymore slurred speech. No chest pain either. He denies any shortness of breath. Clinically stable to be discharged home. He is advised to seek rehabilitation for his alcohol abuse. - Time Spent with Patient Total time spent providing and/or coordinating discharge services: Less than 30 minutes (25 min) - Constitutional Vitals: Temp Pulse Resp BP Pulse Ox 98.2 F 117 16 142/100 96 03/14/17 11:13 03/14/17 11:13 03/14/17 11:13 03/14/17 11:13 03/14/17 11:13 General appearance: Present: cooperative, A&O X 3, no acute distress, answers questions appropriately - Respiratory Respiratory exam: Present: CTAB. Absent: accessory muscle use, rales, rhonchi, wheezes - Cardiovascular Cardiovascular exam: Present: RRR, +S1, +S2. Absent: diastolic murmur, gallop, rubs, systolic murmur - Extremities Exam Extremities exam: Present: warm, radial pulses palpable and symmetrical. Absent : calf tenderness, cyanotic, pedal edema
[2017-03-14] MEDS: Ipratropium/Albuterol Neb 3 ML IH SCH ×2 (15:18→15:35)
[2017-03-14] MEDS ORDERED: *HR* Rivaroxaban 10 MG TABLET PO SCH (17:00)
[2017-03-15] MEDS ORDERED: Finasteride 5 MG TABLET PO SCH (09:00)
--- NOTE | 2017-03-15 09:31 | Electrocardiograph Report ---
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
== END 2017-03-14 19:00 | disposition home or self-care (01) ==
LOC: EMEROO 23:06 → 2NENU 23:06 → SUATTDRO 03-14 04:52 → 2NENU 03-14 05:30
PROVIDERS: ADMIT Internal Medicine; ATTEND Internal Medicine

== ENCOUNTER 2018-11-13 09:51 | Inpatient (IN) ==
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
[2018-11-13 10:51] LABS: Basophils % 0.2 %; Eosinophils # 0.1 K/mcL (0.0-0.6); Eosinophils % 2.2 %; Hematocrit 41.7 % (37.5-50.1); Immature Granulocytes % 0.5 % (0-4); Lymphocytes # 1.5 K/mcL (0.6-4.6); Lymphocytes % 36.3 %; Mean Corpuscular HGB Conc 33.6 g/dL (31.6-35.5); Mean Corpuscular Volume 107.2 fL (83.0-100.0); Mean Platelet Volume 10.3 fL (9.4-12.4); Monocytes # 0.4 K/mcL (0.0-1.3); Monocytes % 10.4 %; Platelet Count 124 K/mcL (140-400); Red Blood Count 3.89 M/mcL (4.19-5.50); Red Cell Distribution Width 14.5 % (11.5-14.5); Segmented Neutrophils % 50.4 %
[2018-11-13 11:05] LABS: BUN/Creatinine Ratio 22 (6-26); Blood Urea Nitrogen 21 mg/dL (8-23); Calcium 9.1 mg/dL (8.6-10.3); Carbon Dioxide 27 mEq/L (23-29); Chloride 104 mEq/L (98-107); Glucose 108 mg/dL (70-105); Osmolality,Calculated 292 (280-300); Potassium 3.9 mEq/L (3.5-5.1); Sodium 139 mEq/L (136-145); eGFR For African Americans > 60 (> 60); eGFR For Non-African Americans > 60 (> 60)
[2018-11-13 11:06] LABS: Troponin I < 0.03 ng/mL (< 0.04)
[2018-11-13] MEDS ORDERED: Nicotine 14 MG PATCH.TD24 TD STA (11:56)
[2018-11-13] MEDS ORDERED: Acetaminophen 325 MG TABLET PO PRN (15:56)
[2018-11-13] MEDS ORDERED: Naloxone 0.4 MG/ML INJ IVP PRN (15:56)
[2018-11-13] MEDS ORDERED: Ondansetron ODT 4 MG TAB.RAPDIS SL PRN (15:56)
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
[2018-11-13] MEDS: amLODIPine 5 MG TABLET PO SCH (17:57)
[2018-11-13] MEDS: traMADol 50 MG TABLET PO PRN (18:28)
[2018-11-14 06:22] LABS: Basophils % 0.5 %; Eosinophils # 0.2 K/mcL (0.0-0.6); Eosinophils % 3.8 %; Hematocrit 39.8 % (37.5-50.1); Hemoglobin 13.4 g/dL (12.9-16.9); Immature Granulocytes % 0.5 % (0-4); Lymphocytes # 1.7 K/mcL (0.6-4.6); Lymphocytes % 41.1 %; Mean Corpuscular HGB Conc 33.7 g/dL (31.6-35.5); Mean Corpuscular Hemoglobin 35.4 pg (28.0-33.3); Mean Corpuscular Volume 105.3 fL (83.0-100.0); Mean Platelet Volume 11.2 fL (9.4-12.4); Monocytes # 0.5 K/mcL (0.0-1.3); Monocytes % 11.7 %; Neutrophils # 1.8 K/mcL (1.6-8.9); Platelet Count 127 K/mcL (140-400); Red Blood Count 3.78 M/mcL (4.19-5.50); Red Cell Distribution Width 14.3 % (11.5-14.5); Segmented Neutrophils % 42.4 %; White Blood Count 4.2 K/mcL (4.3-11.1)
[2018-11-14 06:43] LABS: BUN/Creatinine Ratio 22 (6-26); Blood Urea Nitrogen 18 mg/dL (8-23); Calcium 9.1 mg/dL (8.6-10.3); Carbon Dioxide 26 mEq/L (23-29); Chloride 106 mEq/L (98-107); Chol/HDL Ratio 4.9 (0-4.9); Cholesterol 178 mg/dL (< 200); Glucose 98 mg/dL (70-105); HDL Cholesterol 36 mg/dL (40-59); LDL Cholesterol,Calculated 124 mg/dL (0-99); Magnesium 1.9 mg/dL (1.6-2.6); Osmolality,Calculated 294 (280-300); Potassium 3.9 mEq/L (3.5-5.1); Sodium 141 mEq/L (136-145); Triglycerides 92 mg/dL (< 150); eGFR For African Americans > 60 (> 60); eGFR For Non-African Americans > 60 (> 60)
[2018-11-14] MEDS: Tiotropium 18 MCG inhalation IH SCH (08:00)
[2018-11-14] MEDS ORDERED: amLODIPine 5 MG TABLET PO SCH (09:00)
--- NOTE | 2018-11-14 09:02 | Internal Med Progress Note ---
Hospitalist Progress Note - Encounter Date of Encounter: 11/14/18 Time of Encounter: 09:00 - Subjective Interval History: No acute events overnight - Exam Vitals: Temp Pulse Resp BP Pulse Ox 97.3 F L 67 18 150/80 93 11/14/18 08:12 11/14/18 08:12 11/14/18 08:12 11/14/18 08:12 11/14/18 08:12 Exam: General appearance: Present: A&O X 3, no acute distress Head exam: Present: normocephalic Respiratory exam: Present: CTAB. Absent: accessory muscle use, rales, rhonchi, wheezes Cardiovascular exam: Present: RRR, +S1, +S2. Absent: diastolic murmur, gallop, rubs, systolic murmur GI/Abdominal exam: Soft, NT, ND, +BS Extremities exam: Absent: pedal edema Neurological exam: Alert to person and place. Right sided weakness - Assessment and Plan (1) Right leg weakness Current Visit: Yes Status: Acute Assessment and Plan: Patient has been experiencing right hip and knee pain having difficulty ambulating requiring a cane at times he states that his "leg gives out" and he almost wall fall but he catches himself. xray of the hip showed lubar spine degenerative disease. Will obtain MRI and consult spine if indicated PT/OT following (2) CAD (coronary artery disease) Current Visit: Yes Status: Chronic Assessment and Plan: History of CAD with stent placement Continue aspirin (3) Hypertension Current Visit: Yes Status: Chronic Assessment and Plan: Continue lisinopril and metoprolol (4) Tobacco abuse Current Visit: Yes Status: Chronic Assessment and Plan: Nicotine patch (5) H/O: CVA (cerebrovascular accident) Current Visit: Yes Status: Inactive Assessment and Plan: Patient states he has history of CVA however no deficits Continue aspirin (6) Homeless Current Visit: Yes Status: Acute Assessment and Plan: ambulatory services representative has been consulted attempting to place patient in ECF (7) Chronic pain Current Visit: No Status: Chronic Assessment and Plan: Issue states that he has chronic lower back pain and that he was taking Roxicodone as well as Neurontin for neuropathy- Continue neurontin and ultram (8) Paroxysmal atrial fibrillation Current Visit: Yes Status: Acute Assessment and Plan: Rate controlled. Continue metoprolol and xarelto (9) DVT prophylaxis Current Visit: Yes Status: Acute Assessment and Plan: On Xarelto - Time Spent with Patient Total time spent is greater than 50% in coordination of care (as documented) at patient's floor/unit and/or counseling patient: Internal Medicine: Result - Labs CBC & Chem 7: 11/14/18 05:31 11/14/18 05:31 Labs: Short CBC 11/13/18 11/14/18 Range/Units 10:24 05:31 WBC 4.0 L 4.2 L (4.3-11.1) K/mcL Hgb 14.0 13.4 (12.9-16.9) g/dL Hct 41.7 39.8 (37.5-50.1) % Plt Count 124 L 127 L (140-400) K/mcL Neutrophils # 2.0 1.8 (1.6-8.9) K/mcL BMP 11/13/18 11/14/18 10:24 05:31 Sodium 139 141 Potassium 3.9 3.9 Chloride 104 106 Carbon Dioxide 27 26 BUN 21 18 Creatinine 0.97 0.83 Glucose 108 H 98 Calcium 9.1 9.1 Cardiac Enzymes 11/13/18 Range/Units 10:24 Troponin I < 0.03 (< 0.04) ng/mL - Impressions Impressions Hip X-Ray 11/13/18 10:16 IMPRESSION: Degenerative changes identified within the lower lumbar spine and hip joints bilaterally, without femoral fracture or dislocation at the hip joint. D/ / Kenrick Han MD / Kenrick Han MD Interpreting Provider: Kenrick Han MD Knee X-Ray 11/13/18 10:16 IMPRESSION: 1. No acute osseous abnormality of the right knee. 2. Minimal knee osteoarthritis. D/ / 11/13/2018 10:58:05 Funmilayo Franklin MD / mariel Interpreting Provider: Funmilayo Franklin MD Chest X-Ray 11/13/18 10:28 IMPRESSION: Stable chest. Sequela of prior granulomatous disease. No acute process is seen. D/ / 11/13/2018 11:03:33 Jacques Christina MD / xena Interpreting Provider: Jacques Christina MD Consult Discharge Plan - Plan Referrals: Salo Nathan MD [Primary Care Provider] - (2) CAD (coronary artery disease) Qualifiers: Coronary Disease-Associated Artery/Lesion type: [place] artery [place] vs. transplanted heart: [place] heart Associated angina: without angina Qualified Code(s): I25.10 - Atherosclerotic heart disease of [place] coronary artery without angina pectoris (3) Hypertension Qualifiers: Hypertension type: essential hypertension Qualified Code(s): I10 - Essential (primary) hypertension (7) Chronic pain Qualifiers: Chronic pain type: other chronic pain Qualified Code(s): G89.29 - Other chronic pain
[2018-11-14] MEDS: traMADol 50 MG TABLET PO PRN (09:57)
[2018-11-14] MEDS: Finasteride 5 MG TABLET PO SCH (09:57)
[2018-11-14] MEDS: Aspirin 81 MG TAB.CHEW PO SCH (09:57)
[2018-11-14] MEDS: Lisinopril 20 MG TABLET PO SCH (09:57)
[2018-11-14] MEDS: amLODIPine 5 MG TABLET PO SCH (09:57)
[2018-11-14] MEDS: *HR* OxyCODONE/APAP 5/325 TABLET PO PRN ×2 (11:59→20:07)
[2018-11-14] MEDS: Gabapentin 400 MG CAPSULE PO SCH ×3 (11:59→20:07)
[2018-11-14] MEDS: *HR* Rivaroxaban 10 MG TABLET PO SCH (16:41)
[2018-11-14] MEDS ORDERED: *HR* Rivaroxaban 15 MG TABLET PO SCH (17:00)
[2018-11-15] MEDS: *HR* OxyCODONE/APAP 5/325 TABLET PO PRN ×2 (05:54→14:11)
[2018-11-15] MEDS: Tiotropium 18 MCG inhalation IH SCH (07:34)
--- NOTE | 2018-11-15 07:38 | Internal Med Progress Note ---
Hospitalist Progress Note - Encounter Date of Encounter: 11/15/18 Time of Encounter: 07:30 - Subjective Interval History: No acute events overnight - Exam Vitals: Temp Pulse Resp BP Pulse Ox 97.7 F 61 16 119/68 95 11/15/18 03:26 11/15/18 03:26 11/15/18 07:36 11/15/18 03:26 11/15/18 07:36 Exam: General appearance: Present: A&O X 3, no acute distress Head exam: Present: normocephalic Respiratory exam: Present: CTAB. Absent: accessory muscle use, rales, rhonchi, wheezes Cardiovascular exam: Present: RRR, +S1, +S2. Absent: diastolic murmur, gallop, rubs, systolic murmur GI/Abdominal exam: Soft, NT, ND, +BS Extremities exam: Absent: pedal edema Neurological exam: Alert to person and place. Right sided weakness - Assessment and Plan (1) Foraminal stenosis of lumbar region Current Visit: Yes Status: Chronic Assessment and Plan: Patient has been experiencing right hip and knee pain having difficulty ambulating requiring a cane at times he states that his "leg gives out" and he almost wall fall but he catches himself. xray of the hip showed lubar spine degenerative disease. MRI showed L4-L5 stenosis Seen by spine, patient will require outpatient f/u with pain mgmt and physical therapy MRI also showed hemangioma vs osseous lesions. Obtain CT spine to assess further to r/o malignancy (2) Right leg weakness Current Visit: Yes Status: Acute Assessment and Plan: Patient has been experiencing right hip and knee pain having difficulty ambulating requiring a cane at times he states that his "leg gives out" and he almost wall fall but he catches himself. xray of the hip showed lubar spine degenerative disease. Will obtain MRI and c onsult spine if indicated PT/OT following (3) CAD (coronary artery disease) Current Visit: Yes Status: Chronic Assessment and Plan: History of CAD with stent placement Continue aspirin (4) Hypertension Current Visit: Yes Status: Chronic Assessment and Plan: Continue lisinopril and metoprolol (5) Tobacco abuse Current Visit: Yes Status: Chronic Assessment and Plan: Nicotine patch (6) H/O: CVA (cerebrovascular accident) Current Visit: Yes Status: Inactive Assessment and Plan: Patient states he has history of CVA however no deficits Continue aspirin (7) Homeless Current Visit: Yes Status: Acute Assessment and Plan: dietary services director has been consulted attempting to place patient in ECF (8) Chronic pain Current Visit: No Status: Chronic Assessment and Plan: Issue states that he has chronic lower back pain and that he was taking Roxicodone as well as Neurontin for neuropathy- Continue neurontin and ultram (9) Paroxysmal atrial fibrillation Current Visit: Yes Status: Acute Assessment and Plan: Rate controlled. Continue metoprolol and xarelto (10) DVT prophylaxis Current Visit: Yes Status: Acute Assessment and Plan: On Xarelto - Time Spent with Patient Total time spent is greater than 50% in coordination of care (as documented) at patient's floor/unit and/or counseling patient: Internal Medicine: Result - Labs CBC & Chem 7: 11/14/18 05:31 11/14/18 05:31 - Impressions Impressions Knee X-Ray 11/13/18 10:16 IMPRESSION: 1. No acute osseous abnormality of the right knee. 2. Minimal knee osteoarthritis. D/ / 11/13/2018 10:58:05 Funmilayo Franklin MD / mariel Interpreting Provider: Funmilayo Franklin MD Lumbar Spine MRI 11/14/18 15:16 IMPRESSION: 1. Multilevel degenerative changes of the lumbar spine, most severe at L4-5, as detailed above. 2. Specifically, right foraminal disc herniation superimposed on a disc osteophyte complex at L4-L5 resulting in severe right lateral recess stenosis. Possible smaller right central disc herniation at L4-L5 resulting in [id number] right lateral recess stenosis. Mild spinal canal stenosis at L4-L5. 3. Multiple STIR hyperintense and T1 isointense osseous lesions are indeterminate by MR imaging alone. No previous CT imaging available for comparison. Although this may represent a atypical hemangioma, possibility of aggressive osseous lesions should be excluded either with CT examination. 4. Abdominal aortic aneurysm measuring 4.0 x 3.8 cm. Please see follow up recommendations as detailed below. RECOMMENDATIONS: For management of fusiform AAA: 4.0-4.4 cm AAA, recommend follow-up every 12 months and recommend vascular consultation. * For management of saccular abdominal aortic aneurysms of any size, recommend vascular consultation. Note: For AAA enlargement of >0.5 cm in 6 months or >1 cm in 1 year, recommend vascular consultation. References: J Am Tammy Radiol 2013; 10(10):789-794; J Vasc Surg. 2018; 67:2-77 D/ / Antonio Gaines MD / Antonio Gaines MD Interpreting Provider: Antonio Gaines MD Consult Discharge Plan - Plan Referrals: Salo Nathan MD [Primary Care Provider] - (3) CAD (coronary artery disease) Qualifiers: Coronary Disease-Associated Artery/Lesion type: [place] artery [place] vs. transplanted heart: [place] heart Associated angina: without angina Qualified Code(s): I25.10 - Atherosclerotic heart disease of [place] coronary artery without angina pectoris (4) Hypertension Qualifiers: Hypertension type: essential hypertension Qualified Code(s): I10 - Essential (primary) hypertension (8) Chronic pain Qualifiers: Chronic pain type: other chronic pain Qualified Code(s): G89.29 - Other chronic pain
[2018-11-15] MEDS: Gabapentin 400 MG CAPSULE PO SCH ×2 (08:25→14:19)
[2018-11-15] MEDS: Lisinopril 20 MG TABLET PO SCH (08:25)
[2018-11-15] MEDS: Finasteride 5 MG TABLET PO SCH (08:25)
[2018-11-15] MEDS: traMADol 50 MG TABLET PO PRN ×2 (08:25→16:55)
[2018-11-15] MEDS: amLODIPine 5 MG TABLET PO SCH (08:25)
[2018-11-15] MEDS: Aspirin 81 MG TAB.CHEW PO SCH (08:25)
--- NOTE | 2018-11-15 10:12 | Spine Progress Note ---
Date of Encounter: 11/15/18 Time of Encounter: 10:10 - Assessment and Plan (1) Foraminal stenosis of lumbar region Current Visit: Yes Status: Chronic On exam he is alert in only mild distress and comfortable in bed. Afebrile vital signs stable. His hips move symmetrically. He has no focal motor deficits. He is neurovascularly intact with regard to his bilateral lower extremities. He has no cyanosis or edema. MRI of the lumbar spine dated 11/14/2018 reveals multilevel degenerative changes and disc desiccation. There is bilateral foraminal stenosis at L4-5 which is severe and left-sided foraminal stenosis at L5-S1 which is moderate severe. Impression: 1) foraminal stenosis lumbar spine 2) lumbar radiculopathy Plan: He should start a formal physical therapy program in the hospital for gait training and strengthening in the lower extremities. He can do this on an outpatient basis that is a rehabilitation facility as well. On discharge she should be referred to pain management in the spine Center for consideration of lumbar epidural steroid injections or other interventional treatments for his radicular symptoms. There are no indications for immediate surgical intervention. (2) Lumbar radiculopathy Current Visit: Yes Status: Chronic Subjective Principal diagnosis: Foraminal stenosis lumbar, lumbar radiculopathy, right leg pain Interval history: Mr. Gonzalez is a 73 year old male with history of atrial fibrillation COPD CAD with stents CVA and hypertension chronic back pain presented to [facility] ED for evaluation of right hip and knee pain as well as weakness and his right leg that has been going on for the past 8 months. He states he uses a cane to help him walk however at times his knee gives out and that he almost falls that he catches himself. His pain starts in the back and radiates into the right hip and lower extremity. He rates the pain a 5 on a pain scale. He denies bowel bladder symptomatology. We are asked to see for management of back leg pain in setting of abnormal MRI. Objective Vital signs: Vital Signs Temp Pulse Resp BP Pulse Ox 11/15/18 08:03 98.2 F 55 17 112/62 91 11/15/18 07:36 16 95 11/15/18 03:26 97.7 F 61 18 119/68 95 11/15/18 01:17 95 11/14/18 23:02 98.4 F 53 18 97/59 95 11/14/18 19:25 97.6 F 58 20 114/71 96 11/14/18 11:00 98.5 F 58 22 150/79 95 Intake and Output 11/14/18 11/15/18 11/15/18 23:59 07:59 15:59 Intake Total 400 / 1600 240 / 600 360 / 600 Output Total 800 / 800 Balance 400 / 1600 -560 / -200 360 / -200 Intake: Oral 400 / 1600 240 / 600 360 / 600 Output: Urine 800 / 800 Other: Meal Breakfast Percent of Meal Consumed 100% Weight 79.5 kg Patient Weight 11/15/18 23:59 Weight 79.5 kg - Labs CBC & BMP: 11/14/18 05:31 11/14/18 05:31 Labs: Abnormal lab results WBC 4.2 K/mcL (4.3-11.1) L 11/14/18 05:31 RBC 3.78 M/mcL (4.19-5.50) L 11/14/18 05:31 MCV 105.3 fL (83.0-100.0) H 11/14/18 05:31 MCH 35.4 pg (28.0-33.3) H 11/14/18 05:31 Plt Count 127 K/mcL (140-400) L 11/14/18 05:31 Glucose 108 mg/dL (70-105) H 11/13/18 10:24 LDL Cholesterol, Calc 124 mg/dL (0-99) H 11/14/18 05:31 HDL Cholesterol 36 mg/dL (40-59) L 11/14/18 05:31 Consult Discharge Plan - Plan Referrals: Salo Nathan MD [Primary Care Provider] -
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
--- NOTE | 2018-11-15 13:44 | Physician Discharge Referral ---
- Diagnosis (1) Foraminal stenosis of lumbar region Priority: Primary Status: Chronic (2) Right leg weakness Priority: Primary Status: Acute (3) CAD (coronary artery disease) Priority: Primary Status: Chronic (4) Hypertension Priority: Primary Status: Chronic (5) Tobacco abuse Priority: Primary Status: Chronic (6) H/O: CVA (cerebrovascular accident) Priority: Primary Status: Inactive (7) Homeless Status: Acute (8) Chronic pain Status: Chronic (9) Paroxysmal atrial fibrillation Status: Acute (10) DVT prophylaxis Status: Acute - Transfer Medications Prescriptions: OxyCODONE/APAP 5/325 [Percocet 5/325 MG] 1 each PO Q6HR PRN 3 Days #5 tablet PRN Reason: Severe Pain Lisinopril [Zestril] 10 mg PO DAILY #30 tablet Home Medications: Rivaroxaban [Xarelto] 15 mg PO DAILY #0 08/18/16 [History] Metoprolol [Lopressor] 12.5 mg PO QAM 03/14/17 [History] Metoprolol [Lopressor] 25 mg PO HS 03/14/17 [History] Omeprazole [PriLOSEC] 20 mg PO DAILY 03/14/17 [History] amLODIPine [Norvasc] 5 mg PO DAILY 03/14/17 [History] Albuterol Sulfate [Proventil Hfa] 2 puff IH Q4H PRN 11/13/18 [History] Finasteride [Proscar] 5 mg PO DAILY 11/13/18 [History] Tiotropium [Spiriva] 18 mcg IH DAILY 11/13/18 [History] Lisinopril [Zestril] 10 mg PO DAILY #30 tablet 11/15/18 [Rx] OxyCODONE/APAP 5/325 [Percocet 5/325 MG] 1 each PO Q6HR PRN 3 Days #5 tablet 11/15/18 [Rx] Allergies/Adverse Reactions: Allergy/AdvReac Type Severity Reaction Status Date / Time No Known Allergies Allergy Verified 03/09/18 19:14 - Respiratory Orders Smoking Cessation: Smoking cessation has been advised. For more information, call the [place] Tobacco Quit Line at 6-639-DRSC-NOW. - Mobility Orders Ambulate - Rehabiliation Orders Rehab Orders: Evaluation for Physical Therapy, Evaluation for Occupational Therapy CERTIFICATION: I certify that the transfer of the above named patient to an Extended Care Facility is necessary for the continuing treatment of the diagnosis listed. The above information is true and accurate reflection of patient's current condition. Confidential - Redisclosure prohibited without a patient's written consent.
[2018-11-15 16:45] VITALS: BP 115/67
[2018-11-15] MEDS: *HR* Rivaroxaban 10 MG TABLET PO SCH (16:55)
--- NOTE | 2018-11-16 00:13 | Electrocardiograph Report ---
[facility] Test Date: 2018-11-13 Pat Name: Chandrakant Gonzalez Department: EXAM6 Room: 2A37 Gender: M Director Drug: : 1945 Requested By: Isidro Ramirez Order Number: [id number] Reading MD: Juan Carlos Hicks Measurements Intervals [place] Rate: 52 P: 73 ID: [id number] QRS: 78 QRSD: 95 T: 59 QT: 440 QTc: 410 Interpretive Statements Sinus rhythm Electronically Signed On 11-16-2018 0:12:16 EDT by Juan Carlos Hicks
[2018-11-16] MEDS ORDERED: amLODIPine 5 MG TABLET PO SCH (09:00)
== END 2018-11-15 17:31 | DRG 552 ==
LOC: 2ANU 09:51 → EMEROOARM 09:51 → 2ANU 14:30
PROVIDERS: ADMIT Internal Medicine; ATTEND Internal Medicine

== ENCOUNTER 2019-08-18 17:54 | Inpatient (IN) ==
[2019-08-18 18:54] LABS: Eosinophils % 0.9 %; Hemoglobin 13.7 g/dL (12.9-16.9); Immature Granulocytes % 0.7 % (0-4); Red Cell Distribution Width 13.7 % (11.5-14.5)
[2019-08-18 18:56] LABS: Basophils % 0.1 %; Eosinophils # 0.1 K/mcL (0.0-0.6); Hematocrit 40.5 % (37.5-50.1); Lymphocytes # 1.4 K/mcL (0.6-4.6); Lymphocytes % 19.9 %; Mean Corpuscular HGB Conc 33.8 g/dL (31.6-35.5); Mean Corpuscular Hemoglobin 36.4 pg (28.0-33.3); Mean Corpuscular Volume 107.7 fL (83.0-100.0); Mean Platelet Volume 10.3 fL (9.4-12.4); Monocytes # 0.7 K/mcL (0.0-1.3); Monocytes % 9.6 %; Platelet Count 132 K/mcL (140-400); Red Blood Count 3.76 M/mcL (4.19-5.50); Segmented Neutrophils % 68.8 %; White Blood Count 6.9 K/mcL (4.3-11.1)
[2019-08-18 19:13] LABS: Alanine Aminotransferase 52 Units/L (7-52); Albumin 3.9 g/dL (3.5-5.7); Albumin/Globulin Ratio 1.3 (1.1-2.2); Alkaline Phosphatase 43 Units/L (34-104); Aspartate Amino Transferase 45 Units/L (13-39); BUN/Creatinine Ratio 26 (6-26); Bilirubin,Total 0.7 mg/dL (0.3-1.0); Blood Urea Nitrogen 33 mg/dL (8-23); Calcium 9.2 mg/dL (8.6-10.3); Carbon Dioxide 25 mEq/L (23-29); Chloride 105 mEq/L (98-107); Glucose 123 mg/dL (70-105); Osmolality,Calculated 293 (280-300); Potassium 4.1 mEq/L (3.5-5.1); Sodium 137 mEq/L (136-145); Total Protein 6.9 g/dL (6.4-8.9); Troponin I 0.64 ng/mL (< 0.04); eGFR For African Americans > 60 (> 60); eGFR For Non-African Americans 56 (> 60)
[2019-08-18 19:15] LABS: Neutrophils # 4.8 K/mcL (1.6-8.9)
[2019-08-18 20:31] LABS: Bilirubin,Urine Negative (Negative); Blood,Urine Small (Negative); Clarity,Urine Clear (Clear); Color,Urine Yellow (Yellow); Glucose,Urine (UA) Normal (Normal); Ketones,Urine Negative (Negative); Leukocyte Esterase,Urine Moderate (Negative); Nitrite,Urine Negative (Negative); Protein,Urine 30 mg/dL (Neg-Trace); Specific Gravity,Urine 1.023 (1.010-1.025); Urobilinogen,Urine Normal (Normal)
[2019-08-18 20:33] LABS: Bacteria,Urine None Seen per hpf (None-Few); Hyaline Casts,Urine None Seen per lpf (None-Few); RBC,Urine 0-3 per hpf (0-3); Squamous Epithelial Cell,Urine Many per lpf (None-Few); WBC,Urine 30-50 per hpf (0-3)
[2019-08-18] MEDS ORDERED: MetroNIDAZOLE 500 MG/100 ML 500 MG/100 ML BAG IVPB ONE (21:18)
[2019-08-18] MEDS: Aspirin 81 MG TAB.CHEW PO SCH (21:52)
[2019-08-18] MEDS ORDERED: levoFLOXacin 500 MG/100 ML 500 MG/100 ML BAG IVPB SCH (22:00)
[2019-08-19] MEDS ORDERED: Naloxone 0.4 MG/ML INJ IVP PRN (00:11)
[2019-08-19] MEDS ORDERED: Ondansetron 4 MG/2 ML VIAL IVP PRN (00:11)
[2019-08-19] MEDS ORDERED: Ipratropium/Albuterol Neb 3 ML IH PRN (00:19)
[2019-08-19 01:16] LABS: Hematocrit 37.5 % (37.5-50.1); Hemoglobin 12.9 g/dL (12.9-16.9); Mean Corpuscular HGB Conc 34.4 g/dL (31.6-35.5); Mean Corpuscular Hemoglobin 36.6 pg (28.0-33.3); Mean Corpuscular Volume 106.5 fL (83.0-100.0); Mean Platelet Volume 10.3 fL (9.4-12.4); Platelet Count 126 K/mcL (140-400); Red Blood Count 3.52 M/mcL (4.19-5.50); Red Cell Distribution Width 13.7 % (11.5-14.5); White Blood Count 6.3 K/mcL (4.3-11.1)
[2019-08-19 01:22] LABS: INR 1.1; Prothrombin Time 12.7 Seconds (9.4-12.1)
[2019-08-19] MEDS: 0.9 % Sodium Chloride 1,000 ML IVC SCH ×2 (01:33→10:48)
[2019-08-19 01:37] LABS: Alanine Aminotransferase 44 Units/L (7-52); Albumin 3.7 g/dL (3.5-5.7); Albumin/Globulin Ratio 1.4 (1.1-2.2); Alkaline Phosphatase 41 Units/L (34-104); Aspartate Amino Transferase 35 Units/L (13-39); BUN/Creatinine Ratio 27 (6-26); Bilirubin,Total 0.6 mg/dL (0.3-1.0); Blood Urea Nitrogen 30 mg/dL (8-23); Carbon Dioxide 24 mEq/L (23-29); Chloride 106 mEq/L (98-107); Chol/HDL Ratio 4.3 (0-4.9); Cholesterol 142 mg/dL (< 200); Globulin 2.6 g/dL (2.4-3.5); Glucose 106 mg/dL (70-105); HDL Cholesterol 33 mg/dL (40-59); LDL Cholesterol,Calculated 83 mg/dL (0-99); Magnesium 2.1 mg/dL (1.6-2.6); Osmolality,Calculated 291 (280-300); Phosphorous 2.2 mg/dL (2.7-4.5); Potassium 3.6 mEq/L (3.5-5.1); Sodium 137 mEq/L (136-145); Total Protein 6.3 g/dL (6.4-8.9); Triglycerides 129 mg/dL (< 150); eGFR For African Americans > 60 (> 60); eGFR For Non-African Americans > 60 (> 60)
[2019-08-19 02:02] LABS: Folate 20.8 ng/mL (3.0-16.0)
[2019-08-19] MEDS ORDERED: *HR* LORazepam 2 MG/ML VIAL IVP PRN ×3 (02:07)
[2019-08-19] MEDS ORDERED: MetroNIDAZOLE 500 MG/100 ML 500 MG/100 ML BAG IVPB SCH (06:00)
[2019-08-19] MEDS ORDERED: *HR* Heparin 5,000 UNIT/ML VIAL SQ SCH (06:00)
[2019-08-19] MEDS: Piperacillin/Tazobactam 3.375 GM in 0.9 % Sodium Chloride Mini Bag 100 ML IVPB SCH ×2 (07:46→15:48)
[2019-08-19] MEDS: Aspirin 81 MG TAB.CHEW PO SCH (07:49)
[2019-08-19] MEDS: Tiotropium 18 MCG inhalation IH SCH (11:35)
[2019-08-19 11:41] LABS: Adenovirus F 40/41 PCR Not detected (Not detect); Astrovirus PCR Not detected (Not detect); C.difficile Toxin A/B Gene PCR Not detected (Not detect); Campylobacter by PCR Not detected (Not detect); Cryptosporidium by PCR Not detected (Not detect); Cyclospora cayetanensis PCR Not detected (Not detect); E. coli O157 by PCR Not detected (Not detect); Entamoeba histolytica PCR Not detected (Not detect); Enteroaggregative E.coli(EAEC) Not detected (Not detect); Enteropathogenic E.coli(EPEC) Not detected (Not detect); Enterotoxigenic E.coli (ETEC) Not detected (Not detect); Giardia lamblia PCR Not detected (Not detect); Norovirus GI/GII PCR Not detected (Not detect); Plesiomonas shigelloides PCR Not detected (Not detect); Rotavirus A PCR Not detected (Not detect); Salmonella PCR Not detected (Not detect); Sapovirus PCR Not detected (Not detect); Shig/EnteroinvasiveE coli EIEC Not detected (Not detect); Shigalike tox-prod E coli STEC Not detected (Not detect); Vibrio PCR Not detected (Not detect); Vibrio cholerae PCR Not detected (Not detect); Yersinia enterocolitica PCR Not detected (Not detect)
[2019-08-19] MEDS: Finasteride 5 MG TABLET PO SCH (11:49)
[2019-08-19] MEDS: lisinopriL 10 MG TABLET PO SCH (11:49)
[2019-08-19] MEDS: Gabapentin 300 MG CAPSULE PO SCH ×3 (12:27→19:56)
[2019-08-19] MEDS ORDERED: *HR* Rivaroxaban 15 MG TABLET PO SCH (17:00)
[2019-08-19] MEDS: Thiamine (B-1) 100 MG, Folic Acid 1 MG, MVI, adult with vitamin K 10 ML in 0.9 % Sodi... IVPB SCH (17:46)
[2019-08-19] MEDS ORDERED: Vancomycin 1,250 MG/262.5 ML IV.SOLN IVPB ONE (19:21)
[2019-08-20] MEDS: Piperacillin/Tazobactam 3.375 GM in 0.9 % Sodium Chloride Mini Bag 100 ML IVPB SCH ×4 (00:36→23:23)
[2019-08-20 02:36] LABS: Hematocrit 36.1 % (37.5-50.1); Hemoglobin 12.5 g/dL (12.9-16.9); Mean Corpuscular HGB Conc 34.6 g/dL (31.6-35.5); Mean Corpuscular Hemoglobin 36.3 pg (28.0-33.3); Mean Corpuscular Volume 104.9 fL (83.0-100.0); Mean Platelet Volume 10.4 fL (9.4-12.4); Platelet Count 129 K/mcL (140-400); Red Blood Count 3.44 M/mcL (4.19-5.50); Red Cell Distribution Width 13.4 % (11.5-14.5); White Blood Count 6.3 K/mcL (4.3-11.1)
[2019-08-20 02:58] LABS: BUN/Creatinine Ratio 16 (6-26); Blood Urea Nitrogen 16 mg/dL (8-23); Calcium 8.7 mg/dL (8.6-10.3); Carbon Dioxide 22 mEq/L (23-29); Chloride 109 mEq/L (98-107); Glucose 101 mg/dL (70-105); Osmolality,Calculated 291 (280-300); Potassium 3.3 mEq/L (3.5-5.1); Sodium 140 mEq/L (136-145); eGFR For African Americans > 60 (> 60); eGFR For Non-African Americans > 60 (> 60)
[2019-08-20] MEDS ORDERED: hydrALAZINE 25 MG TABLET PO PRN (07:27)
[2019-08-20] MEDS ORDERED: Perflutren Lipid Microsphere 1.3 ML in 0.9 % Sodium Chloride 8.7 ML IVP ONE (08:54)
[2019-08-20] MEDS: lisinopriL 10 MG TABLET PO SCH (09:04)
[2019-08-20] MEDS: Finasteride 5 MG TABLET PO SCH (09:04)
[2019-08-20] MEDS: Aspirin 81 MG TAB.CHEW PO SCH (09:04)
[2019-08-20] MEDS: Gabapentin 300 MG CAPSULE PO SCH ×4 (09:04→20:31)
[2019-08-20] MEDS: Tiotropium 18 MCG inhalation IH SCH (10:02)
[2019-08-20] MEDS: Acetaminophen 325 MG TABLET PO PRN ×2 (10:48→16:25)
[2019-08-20] MEDS ORDERED: *HR* Rivaroxaban 10 MG TABLET PO SCH (17:00)
[2019-08-20] MEDS: Thiamine (B-1) 100 MG, Folic Acid 1 MG, MVI, adult with vitamin K 10 ML in 0.9 % Sodi... IVPB SCH (17:33)
[2019-08-21] MEDS: Acetaminophen 325 MG TABLET PO PRN ×3 (03:06→13:32)
[2019-08-21 03:13] LABS: Hemoglobin 12.6 g/dL (12.9-16.9); Mean Corpuscular HGB Conc 34.1 g/dL (31.6-35.5); Mean Corpuscular Hemoglobin 35.4 pg (28.0-33.3); Mean Corpuscular Volume 103.9 fL (83.0-100.0); Mean Platelet Volume 10.2 fL (9.4-12.4); Platelet Count 136 K/mcL (140-400); Red Blood Count 3.56 M/mcL (4.19-5.50); Red Cell Distribution Width 13.1 % (11.5-14.5); White Blood Count 5.4 K/mcL (4.3-11.1)
[2019-08-21 03:34] LABS: BUN/Creatinine Ratio 11 (6-26); Blood Urea Nitrogen 9 mg/dL (8-23); Calcium 8.8 mg/dL (8.6-10.3); Carbon Dioxide 23 mEq/L (23-29); Chloride 107 mEq/L (98-107); Glucose 109 mg/dL (70-105); Magnesium 1.5 mg/dL (1.6-2.6); Osmolality,Calculated 289 (280-300); Potassium 3.3 mEq/L (3.5-5.1); Sodium 140 mEq/L (136-145); eGFR For African Americans > 60 (> 60); eGFR For Non-African Americans > 60 (> 60)
[2019-08-21 07:00] VITALS: BP 174/95
[2019-08-21] MEDS: Tiotropium 18 MCG inhalation IH SCH (07:55)
[2019-08-21 08:31] LABS: Hepatitis B Surface Antigen Nonreactive (Nonreactive)
[2019-08-21] MEDS: Finasteride 5 MG TABLET PO SCH (08:35)
[2019-08-21] MEDS: lisinopriL 10 MG TABLET PO SCH (08:35)
[2019-08-21] MEDS: Aspirin 81 MG TAB.CHEW PO SCH (08:36)
[2019-08-21] MEDS: Gabapentin 300 MG CAPSULE PO SCH ×2 (08:36→13:31)
[2019-08-21] MEDS: Piperacillin/Tazobactam 3.375 GM in 0.9 % Sodium Chloride Mini Bag 100 ML IVPB SCH (08:38)
[2019-08-21 09:00] LABS: Hepatitis B Core IgM Nonreactive (Nonreactive)
[2019-08-21 09:02] LABS: Hepatitis A Antibody IgM Nonreactive (Nonreactive)
[2019-08-21] MEDS ORDERED: lisinopriL 10 MG TABLET PO ONE (10:00)
[2019-08-21 11:42] LABS: Hepatitis C Virus Antibody Reactive (Nonreactive)
[2019-08-21 13:42] LABS: BUN/Creatinine Ratio 11 (6-26); Blood Urea Nitrogen 10 mg/dL (8-23); Carbon Dioxide 29 mEq/L (23-29); Chloride 106 mEq/L (98-107); Glucose 175 mg/dL (70-105); Osmolality,Calculated 297 (280-300); Potassium 3.4 mEq/L (3.5-5.1); Sodium 142 mEq/L (136-145); eGFR For African Americans > 60 (> 60); eGFR For Non-African Americans > 60 (> 60)
[2019-08-21] MEDS ORDERED: Aminoglycoside Consult 1 EACH MC ONE (14:34)
[2019-08-22] MEDS ORDERED: lisinopriL 20 MG TABLET PO SCH (09:00)
== END 2019-08-21 14:35 | disposition home or self-care (01) | DRG 391 ==
LOC: EMEROOARM 17:54 → 2ANU 17:54 → SUATTDRO 23:15 → 2ANU 08-19 00:34
PROVIDERS: ADMIT Student in an Organized Health Care Education/Training Program; ATTEND Internal Medicine

== ENCOUNTER 2019-09-20 11:49 | Inpatient (IN) ==
[2019-09-20] MEDS ORDERED: Isovue-370 500 ML BOTTLE IVP ONE ×2 (12:16→12:17)
[2019-09-20 12:47] LABS: VBG HCO3 29 mEq/L (21-27); VBG PCO2 59 mmHg (41-51); VBG PH 7.31 pH Units (7.32-7.42); VBG PO2 56 mmHg (25-50)
[2019-09-20 12:48] LABS: Basophils % 0.2 %; Eosinophils # 0.1 K/mcL (0.0-0.6); Eosinophils % 1.9 %; Hematocrit 36.8 % (37.5-50.1); Hemoglobin 12.2 g/dL (12.9-16.9); Immature Granulocytes % 0.9 % (0-4); Immature Platelets 5.8 % (1.1-6.1); Lymphocytes % 17.3 %; Mean Corpuscular HGB Conc 33.2 g/dL (31.6-35.5); Mean Corpuscular Volume 108.6 fL (83.0-100.0); Mean Platelet Volume 10.8 fL (9.4-12.4); Monocytes # 0.7 K/mcL (0.0-1.3); Monocytes % 11.4 %; Platelet Count 101 K/mcL (140-400); Red Blood Count 3.39 M/mcL (4.19-5.50); Red Cell Distribution Width 14.5 % (11.5-14.5); Segmented Neutrophils % 68.3 %; White Blood Count 5.8 K/mcL (4.3-11.1)
[2019-09-20 12:55] LABS: Activated Partial Thrombo Time 27.5 Seconds (26.0-36.0); INR 1.1; Prothrombin Time 12.1 Seconds (9.4-12.1)
[2019-09-20 13:10] LABS: Alanine Aminotransferase 15 Units/L (7-52); Albumin 4.2 g/dL (3.5-5.7); Albumin/Globulin Ratio 1.8 (1.1-2.2); Alkaline Phosphatase 42 Units/L (34-104); Aspartate Amino Transferase 16 Units/L (13-39); BUN/Creatinine Ratio 15 (6-26); Bilirubin,Direct 0.1 mg/dL (0.0-0.2); Bilirubin,Indirect 0.6 mg/dL (0.0-1.0); Bilirubin,Total 0.7 mg/dL (0.3-1.0); Blood Urea Nitrogen 14 mg/dL (8-23); Calcium 9.7 mg/dL (8.6-10.3); Carbon Dioxide 29 mEq/L (23-29); Chloride 105 mEq/L (98-107); Ethanol < 10 mg/dL (Less than 10); Globulin 2.3 g/dL (2.4-3.5); Glucose 107 mg/dL (70-105); Lipase 12 Units/L (11-82); Osmolality,Calculated 289 (280-300); Potassium 3.8 mEq/L (3.5-5.1); Sodium 139 mEq/L (136-145); Total Protein 6.5 g/dL (6.4-8.9); eGFR For African Americans > 60 (> 60); eGFR For Non-African Americans > 60 (> 60)
[2019-09-20 13:11] LABS: Troponin I < 0.03 ng/mL (< 0.04)
[2019-09-20] MEDS ORDERED: Naloxone 0.4 MG/ML INJ IVP PRN (15:36)
[2019-09-20] MEDS ORDERED: Ondansetron 4 MG/2 ML VIAL IVP PRN (15:36)
[2019-09-20 16:08] LABS: Bacteria,Urine Few per hpf (None-Few); Bilirubin,Urine Negative (Negative); Blood,Urine Trace (Negative); Clarity,Urine Clear (Clear); Color,Urine Yellow (Yellow); Glucose,Urine (UA) Normal (Normal); Ketones,Urine Negative (Negative); Leukocyte Esterase,Urine Large (Negative); Mucus,Urine Few per lpf (None-Few); Nitrite,Urine Negative (Negative); PH,Urine 5.5 pH Units (5.0-8.0); Protein,Urine Negative (Neg-Trace); Specific Gravity,Urine > 1.030 (1.010-1.025); Urobilinogen,Urine Normal (Normal); WBC,Urine 15-30 per hpf (0-3)
[2019-09-20 16:13] LABS: Amphetamine Screen,Urine Negative ng/mL (Cutoff=1000); Barbiturate Screen,Urine Negative ng/mL (Cutoff=200); Benzodiazepines Screen,Urine Negative ng/mL (Cutoff=200); Cannabinoid Screen,Urine Positive ng/mL (Cutoff = 50); Cocaine Screen,Urine Negative ng/mL (Cutoff= 300); Opiate Screen,Urine Negative ng/mL (Cutoff=300); Phencyclidine Screen,Urine Negative ng/mL (Cutoff=25)
[2019-09-20] MEDS: lisinopriL 20 MG TABLET PO SCH (17:33)
[2019-09-20] MEDS: Azithromycin 250 MG TABLET PO SCH (17:33)
[2019-09-20] MEDS ORDERED: Aspirin 325 MG TABLET PO ONE (17:35)
[2019-09-20] MEDS ORDERED: Nitroglycerin 0.4 MG TAB.SUBL SL ONE (17:36)
[2019-09-20] MEDS: 0.9 % Sodium Chloride 1,000 ML IVC SCH (17:53)
[2019-09-20] MEDS: Ipratropium/Albuterol Neb 3 ML IH SCH ×2 (17:53→22:02)
[2019-09-20] MEDS ORDERED: Nitroglycerin 0.4 MG TAB.SUBL SL PRN (17:55)
[2019-09-21 01:07] LABS: Basophils % 0.5 %; Eosinophils # 0.1 K/mcL (0.0-0.6); Hemoglobin 11.7 g/dL (12.9-16.9); Immature Granulocytes % 0.8 % (0-4); Lymphocytes # 1.2 K/mcL (0.6-4.6); Lymphocytes % 30.6 %; Mean Corpuscular HGB Conc 33.4 g/dL (31.6-35.5); Mean Corpuscular Hemoglobin 36.4 pg (28.0-33.3); Mean Platelet Volume 10.6 fL (9.4-12.4); Monocytes # 0.6 K/mcL (0.0-1.3); Monocytes % 15.3 %; Red Blood Count 3.21 M/mcL (4.19-5.50); Red Cell Distribution Width 14.4 % (11.5-14.5); Segmented Neutrophils % 49.8 %
[2019-09-21 01:10] LABS: BUN/Creatinine Ratio 15 (6-26); Blood Urea Nitrogen 14 mg/dL (8-23); Calcium 9.3 mg/dL (8.6-10.3); Carbon Dioxide 25 mEq/L (23-29); Chloride 105 mEq/L (98-107); Glucose 94 mg/dL (70-105); Osmolality,Calculated 286 (280-300); Potassium 3.6 mEq/L (3.5-5.1); Sodium 138 mEq/L (136-145); eGFR For African Americans > 60 (> 60); eGFR For Non-African Americans > 60 (> 60)
[2019-09-21 01:14] LABS: Platelet Count 92 K/mcL (140-400)
[2019-09-21] MEDS: Ipratropium/Albuterol Neb 3 ML IH SCH ×4 (03:49→22:09)
[2019-09-21] MEDS: *HR* Rivaroxaban 10 MG TABLET PO SCH (08:16)
[2019-09-21] MEDS: Finasteride 5 MG TABLET PO SCH (08:16)
[2019-09-21] MEDS: Azithromycin 250 MG TABLET PO SCH (08:16)
[2019-09-21] MEDS: Aspirin 81 MG TAB.CHEW PO SCH (08:16)
[2019-09-21] MEDS: lisinopriL 20 MG TABLET PO SCH (08:16)
[2019-09-21] MEDS: predniSONE 20 MG TABLET PO SCH (08:16)
[2019-09-22] MEDS: Ipratropium/Albuterol Neb 3 ML IH SCH ×4 (04:00→22:34)
[2019-09-22] MEDS ORDERED: *HR* LORazepam 2 MG/ML VIAL IVP ONE (04:23)
[2019-09-22] MEDS ORDERED: *HR* LORazepam 2 MG/ML VIAL ONE (04:27)
[2019-09-22] MEDS: 0.9 % Sodium Chloride 1,000 ML IVC SCH (04:41)
[2019-09-22] MEDS ORDERED: Regadenoson 0.4 MG/5 ML SYRINGE IVP ONE (06:18)
[2019-09-22] MEDS: Aspirin 81 MG TAB.CHEW PO SCH (08:41)
[2019-09-22] MEDS: Azithromycin 250 MG TABLET PO SCH (08:41)
[2019-09-22] MEDS: predniSONE 20 MG TABLET PO SCH (08:41)
[2019-09-22] MEDS: Finasteride 5 MG TABLET PO SCH (08:41)
[2019-09-22] MEDS: *HR* Rivaroxaban 10 MG TABLET PO SCH (08:42)
[2019-09-22] MEDS: lisinopriL 20 MG TABLET PO SCH (08:42)
[2019-09-22 09:54] LABS: Basophils % 0.5 %; Eosinophils # 0.1 K/mcL (0.0-0.6); Eosinophils % 1.1 %; Hematocrit 36.9 % (37.5-50.1); Hemoglobin 12.3 g/dL (12.9-16.9); Immature Granulocytes % 0.5 % (0-4); Lymphocytes # 1.1 K/mcL (0.6-4.6); Lymphocytes % 24.9 %; Mean Corpuscular HGB Conc 33.3 g/dL (31.6-35.5); Mean Corpuscular Hemoglobin 35.7 pg (28.0-33.3); Mean Platelet Volume 10.4 fL (9.4-12.4); Monocytes # 0.4 K/mcL (0.0-1.3); Monocytes % 9.8 %; Neutrophils # 2.8 K/mcL (1.6-8.9); Platelet Count 117 K/mcL (140-400); Red Blood Count 3.45 M/mcL (4.19-5.50); Red Cell Distribution Width 14.3 % (11.5-14.5); Segmented Neutrophils % 63.2 %; White Blood Count 4.4 K/mcL (4.3-11.1)
[2019-09-22 10:16] LABS: Alanine Aminotransferase 18 Units/L (7-52); Albumin 4.5 g/dL (3.5-5.7); Albumin/Globulin Ratio 1.6 (1.1-2.2); Alkaline Phosphatase 43 Units/L (34-104); Aspartate Amino Transferase 20 Units/L (13-39); BUN/Creatinine Ratio 16 (6-26); Bilirubin,Total 0.5 mg/dL (0.3-1.0); Blood Urea Nitrogen 16 mg/dL (8-23); Carbon Dioxide 24 mEq/L (23-29); Chloride 105 mEq/L (98-107); Globulin 2.8 g/dL (2.4-3.5); Glucose 120 mg/dL (70-105); Osmolality,Calculated 290 (280-300); Potassium 3.4 mEq/L (3.5-5.1); Sodium 139 mEq/L (136-145); Total Protein 7.3 g/dL (6.4-8.9); eGFR For African Americans > 60 (> 60); eGFR For Non-African Americans > 60 (> 60)
[2019-09-22 11:07] LABS: Thyroid Stimulating Hormone 0.694 mcIU/mL (0.340-5.600)
[2019-09-22 11:17] LABS: Folate 19.5 ng/mL (3.0-16.0)
[2019-09-22] MEDS: Doxycycline 100 MG CAPSULE PO SCH ×2 (12:06→20:44)
[2019-09-22] MEDS: Nicotine 21 MG PATCH.TD24 TD SCH (14:21)
[2019-09-22] MEDS: Acetaminophen 325 MG TABLET PO PRN (20:44)
[2019-09-23] MEDS: Ipratropium/Albuterol Neb 3 ML IH SCH ×4 (03:51→22:24)
[2019-09-23 09:18] LABS: Basophils % 0.3 %; Eosinophils # 0.1 K/mcL (0.0-0.6); Eosinophils % 2.6 %; Hematocrit 35.3 % (37.5-50.1); Immature Granulocytes % 0.6 % (0-4); Lymphocytes % 29.3 %; Mean Corpuscular Hemoglobin 36.5 pg (28.0-33.3); Mean Corpuscular Volume 107.3 fL (83.0-100.0); Mean Platelet Volume 10.5 fL (9.4-12.4); Monocytes # 0.3 K/mcL (0.0-1.3); Neutrophils # 2.1 K/mcL (1.6-8.9); Platelet Count 116 K/mcL (140-400); Red Blood Count 3.29 M/mcL (4.19-5.50); Red Cell Distribution Width 14.6 % (11.5-14.5); Segmented Neutrophils % 59.2 %; White Blood Count 3.5 K/mcL (4.3-11.1)
[2019-09-23 09:21] LABS: BUN/Creatinine Ratio 15 (6-26); Blood Urea Nitrogen 15 mg/dL (8-23); Calcium 9.8 mg/dL (8.6-10.3); Carbon Dioxide 28 mEq/L (23-29); Chloride 106 mEq/L (98-107); Glucose 110 mg/dL (70-105); Osmolality,Calculated 293 (280-300); Potassium 3.5 mEq/L (3.5-5.1); Sodium 141 mEq/L (136-145); eGFR For African Americans > 60 (> 60); eGFR For Non-African Americans > 60 (> 60)
[2019-09-23] MEDS: predniSONE 20 MG TABLET PO SCH (09:39)
[2019-09-23] MEDS: lisinopriL 20 MG TABLET PO SCH (09:39)
[2019-09-23] MEDS: *HR* Rivaroxaban 10 MG TABLET PO SCH (09:39)
[2019-09-23] MEDS: Aspirin 81 MG TAB.CHEW PO SCH (09:40)
[2019-09-23] MEDS: Doxycycline 100 MG CAPSULE PO SCH ×2 (09:40→20:26)
[2019-09-23] MEDS: Finasteride 5 MG TABLET PO SCH (09:40)
[2019-09-23] MEDS: Nicotine 21 MG PATCH.TD24 TD SCH (09:40)
[2019-09-23] MEDS ORDERED: lisinopriL 20 MG TABLET PO ONE (12:51)
[2019-09-24] MEDS: Ipratropium/Albuterol Neb 3 ML IH SCH ×2 (03:32→09:25)
[2019-09-24 06:43] LABS: VBG HCO3 23 mEq/L (21-27); VBG PCO2 34 mmHg (41-51); VBG PH 7.44 pH Units (7.32-7.42); VBG PO2 96 mmHg (25-50)
[2019-09-24 06:44] LABS: Basophils % 0.2 %; Hematocrit 33.3 % (37.5-50.1); Hemoglobin 11.2 g/dL (12.9-16.9); Immature Granulocytes % 0.5 % (0-4); Lymphocytes # 1.4 K/mcL (0.6-4.6); Lymphocytes % 35.2 %; Mean Corpuscular HGB Conc 33.6 g/dL (31.6-35.5); Mean Corpuscular Volume 107.1 fL (83.0-100.0); Mean Platelet Volume 10.3 fL (9.4-12.4); Monocytes # 0.4 K/mcL (0.0-1.3); Monocytes % 10.3 %; Neutrophils # 2.2 K/mcL (1.6-8.9); Platelet Count 103 K/mcL (140-400); Red Blood Count 3.11 M/mcL (4.19-5.50); Red Cell Distribution Width 14.3 % (11.5-14.5); Segmented Neutrophils % 52.8 %; White Blood Count 4.1 K/mcL (4.3-11.1)
[2019-09-24] MEDS: Doxycycline 100 MG CAPSULE PO SCH (07:47)
[2019-09-24] MEDS: Aspirin 81 MG TAB.CHEW PO SCH (07:48)
[2019-09-24] MEDS: Finasteride 5 MG TABLET PO SCH (07:48)
[2019-09-24] MEDS: Nicotine 21 MG PATCH.TD24 TD SCH (07:48)
[2019-09-24] MEDS: *HR* Rivaroxaban 10 MG TABLET PO SCH (07:48)
[2019-09-24] MEDS ORDERED: lisinopriL 20 MG TABLET PO SCH (09:00)
[2019-09-24 12:09] VITALS: BP 159/81
[2019-09-24] MEDS: Acetaminophen 325 MG TABLET PO PRN (12:56)
== END 2019-09-24 14:21 | DRG 190 ==
LOC: 2ANU 11:49 → EMEROOARM 11:49 → SUATTDRO 16:10 → 2ANU 16:58
PROVIDERS: ADMIT Internal Medicine; ATTEND Internal Medicine